=== PATIENT | male | born 1930 | race Caucasian/White ===

== ENCOUNTER 2018-02-18 16:42 | Inpatient (IN) | payer MEDICARE ==
[~2018-02-18] VITALS: Ht 167.6 cm; Wt 64.8 kg
[~2018-02-18 16:42] MED LIST: ZOCO10TA
[2018-02-18 17:28] VITALS: BP 151/92; PULSE 77; RESP 18; TEMP 97.6; O2SAT 98
[2018-02-18] MEDS ORDERED: LEVO50TA4 PO (17:49)
[2018-02-18] MEDS ORDERED: WARF-18 PO (17:49)
[2018-02-18] MEDS ORDERED: GABA300C5 PO (17:49)
[2018-02-18] MEDS ORDERED: METO100T PO (17:49)
[2018-02-18] MEDS ORDERED: MONT10TA2 PO (17:50)
[2018-02-18] MEDS ORDERED: RANI150T PO (17:50)
[2018-02-18 17:54] VITALS: RESP 18; O2SAT 95
[2018-02-18 18:05] LABS: AUTOMATED NEUTROPHIL # 5.7 TH/MM3 (1.8-7.7); BASOPHIL # 0.1 TH/MM3 (0-0.2); BASOPHIL % 0.8 % (0.0-2.0); EOSINOPHIL # 0.1 TH/MM3 (0-0.4); EOSINOPHIL % 1.8 % (0.0-4.0); HEMATOCRIT 43.2 % (39.0-51.0); HEMOGLOBIN 14.4 GM/DL (13.0-17.0); LYMPH % 10.2 % (9.0-44.0); LYMPHOCYTE # 0.8 TH/MM3 (1.0-4.8); MEAN CELL VOLUME 100.5 FL (80.0-100.0); MEAN CORPUSCULAR HEMOGLOBIN 33.5 PG (27.0-34.0); MEAN CORPUSCULAR HGB CONC 33.4 % (32.0-36.0); MONO % 11.2 % (0.0-8.0); MONOCYTE # 0.8 TH/MM3 (0-0.9); PLATELET COUNT 266 TH/MM3 (150-450); RED CELL DISTRIBUTION WIDTH 15.7 % (11.6-17.2); WHITE BLOOD COUNT 7.5 TH/MM3 (4.0-11.0)
[2018-02-18 18:31] LABS: BICARBONATE 21.6 MEQ/L (21.0-32.0); CALCIUM 8.8 MG/DL (8.5-10.1); CREATININE 2.49 MG/DL (0.60-1.30)
[2018-02-18] MEDS ORDERED: SODIUM CHLORID 0.9% 500 ML INJ 500 ML IV ONE (18:45)
--- NOTE | 2018-02-18 18:49 | RADRPT ---
EXAM DATE/TIME: 02/18/2018 18:03 [facility] COMPARISON: No previous studies available for comparison. INDICATIONS : Short of breath. MEDICAL HISTORY : None. SURGICAL HISTORY : None. ENCOUNTER: Subsequent ACUITY: 3 days PAIN SCORE: 6/10 LOCATION: Bilateral chest FINDINGS: The lungs are clear. Mild hyperinflation The heart is minimally enlarged. The pulmonary vascularity is normal. There is no evidence for infiltrate or failure. The portion of the bony skeleton visualized is unremarkable. CONCLUSION: Compensated cardiomegaly with mild hyperinflation otherwise negative . Mike Armendariz MD FACR on February 18, 2018 at 18:46 Board Certified Radiologist. This report was verified electronically.
[2018-02-18 19:02] LABS: PROTHROMBIN TIME - PATIENT 95.4 SEC (9.8-11.6)
[2018-02-18 19:11] LABS: INTERNATIONAL NORMALIZED RATIO 9.6 RATIO
[2018-02-18 19:47] LABS: ALBUMIN 3.7 GM/DL (3.4-5.0); DIRECT BILIRUBIN ADULT 0.8 MG/DL (0.0-0.2); MAGNESIUM 2.4 MG/DL (1.5-2.5)
[2018-02-18 19:57] LABS: INDIRECT BILIRUBIN 1.4 MG/DL (0.0-0.8); TOTAL BILIRUBIN ADULT 2.2 MG/DL (0.2-1.0); TOTAL PROTEIN 7.2 GM/DL (6.4-8.2); TROPONIN I 0.09 NG/ML (0.02-0.05)
[2018-02-18 20:09] VITALS: BP 140/76; PULSE 85; RESP 18; O2SAT 95
--- NOTE | 2018-02-18 20:11 | RADRPT ---
EXAM DATE/TIME: 02/18/2018 19:38 [facility] COMPARISON: No previous studies available for comparison. INDICATIONS : Mucosal RADIATION DOSE: 41.35 CTDIvol (mGy) MEDICAL HISTORY : Hypertension. Carcinoma, prostate. SURGICAL HISTORY : None. ENCOUNTER: Initial ACUITY: 1 day PAIN SCALE: 2/10 LOCATION: cranial TECHNIQUE: Multiple contiguous axial images were obtained of the head. Using automated exposure control and adj ustment of the mA and/or kV according to patient size, radiation dose was kept as low as reasonably a chievable to obtain optimal diagnostic quality images. DICOM format image data is available electro nically for review and comparison. 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 Mild atrophy. Ventricle size is appropriate. No parenchymal hem orrhage, acute infarction or mass effect. POSTERIOR FOSSA: Posterior EXTRACRANIAL: Extracranial SKULL: The calvaria is intact. No evidence of skull fracture. CONCLUSION: Left occipital region Mike Armendariz MD FACR on February 18, 2018 at 20:07 Board Certified Radiologist. This report was verified electronically.
--- NOTE | 2018-02-18 20:14 | RADRPT ---
EXAM DATE/TIME: 02/18/2018 19:43 [facility] COMPARISON: No previous studies available for comparison. INDICATIONS : Patient complains of weakness and abdominal pain. ORAL CONTRAST: No oral contrast ingested. RADIATION DOSE: 6.77 CTDIvol (mGy) MEDICAL HISTORY : Hypertension. Carcinoma, prostate. SURGICAL HISTORY : None. ENCOUNTER: Initial ACUITY: 1 day PAIN SCALE: 0/10 LOCATION: abdomen TECHNIQUE: Volumetric scanning of the abdomen and pelvis was performed. Using automated exposure control and ad justment of the mA and/or kV according to patient size, radiation dose was kept as low as reasonably achievable to obtain optimal diagnostic quality images. DICOM format image data is available electro nically for review and comparison. FINDINGS: Small right pleural effusion. Mild complete cardiomegaly. The liver and gallbladder are unremarkable Previous gastric surgery Spleen, pancreas and adrenals unremarkable Kidneys unremarkable Extensive vascular calcifications There is no ascites or adenopathy The contents are unremarkable Review of bone was revealed extensive bone sclerosis in the T10 vertebral body. Minimal sclerotic ch anges are seen in L5 and S1. CONCLUSION: Small right pleural effusion Cannot exclude bony metastatic disease in T10. Correlation suggested. No other abnormality is appreciated. Mike Armendariz MD FACR on February 18, 2018 at 20:08 Board Certified Radiologist. This report was verified electronically.
[2018-02-18 20:44] LABS: BACTERIA, URINE OCC /hpf; BILIRUBIN, URINE NEG (NEG); BLOOD, URINE NEG (NEG); GLUCOSE,URINE NEG (NEG); HYALINE CAST, URINE 10 /lpf (RARE); KETONE, URINE NEG (NEG); NITRITE,URINE NEG (NEG); SQUAMOUS EPITHELIAL CELL URINE <1 /hpf (0-5); URINE COLOR YELLOW (YELLW/STRAW); URINE LEUKOCYTE ESTERASE SMALL (NEG)
--- NOTE | 2018-02-18 21:02 | PD ---
HPI Chief Complaint: General Weakness Time Seen by Provider: 18:00 Travel History International Travel<30 days: No Contact w/Intl Traveler<30days: No Traveled to known affect area: No History of Present Illness HPI 87-year-old male that presents to the ED for evaluation of generalized weakness and shortness of breath with exertion. Patient has had this for a couple of months. Per patient it all started and Thanksgiving. Per patient since Thanksgiving he has been having issues with his throat. Per patient he spits up a lot of phlegm. He had an episode of choking during Thanksgiving and he had issues during the night but ever since has been having issues with spitting up and shortness of breath with exertion. He was seen by a counter sales person, ear nose controlled, fisheries management biologist and they will prescribe him some inhalers with minimal relief. Per patient and family he continued to have the symptoms. He does have a history of early dementia and has a history of heart disease taking Coumadin. He had a history of stroke as well has a history of CHF in the past. Per family and patient did have noted that he is progressively getting weaker and weaker. He is also not eating for the past 4 days. He has been having shortness of breath with exertion which is basic tasks that before he is to be able to do well. Patient denies any pain. No chest pain or shortness of breath at this time. No injuries. No falls or head injuries. No bleeding. PFSH Past Medical History Atrial Fibrillation: Yes Blood Disorders: No Cancer: Yes (PROSTATE) Cardiovascular Problems: No High Cholesterol: Yes Chemotherapy: No Endocrine: No Gastrointestinal Disorders: Yes Genitourinary: Yes Hypertension: Yes Immune Disorder: No Musculoskeletal: No Neurologic: No Psychiatric: No Reproductive: No Respiratory: No Radiation Therapy: No Thyroid Disease: Yes Ulcer: Yes (30 YEARS AGO) Past Surgical History AICD: No Arteriovenous Shunt: No Insulin Pump: No Joint Replacement: No Pacemaker: No Social History Alcohol Use: Yes (1-2 BEERS DAILY) Tobacco Use: No Substance Use: No Allergies-Medications (Allergen,Severity, Reaction): Coded Allergies: Sulfa (Sulfonamide Antibiotics) (Unverified Allergy, Unknown, 06/29/17) Reported Meds & Prescriptions Reported Meds & Active Scripts Active Reported Ranitidine (Ranitidine HCl) 150 Mg Tab 150 Mg PO BID Singulair (Montelukast Sodium) 10 Mg Tab 10 Mg PO HS Gabapentin 300 Mg Cap 300 Mg PO HS Warfarin 2.5 Mg Tab 2.5 Mg PO DAILY Levothyroxine (Levothyroxine Sodium) 50 Mcg Tab 50 Mcg PO DAILY Metoprolol Tartrate 100 Mg Tab 100 Mg PO DAILY Review of Systems Except as stated in HPI: all other systems reviewed are Neg Physical Exam Narrative GENERAL: SKIN: Warm and dry. HEAD: Atraumatic. Normocephalic. EYES: Pupils equal and round. No scleral icterus. No injection or drainage. ENT: No nasal bleeding or discharge. Mucous membranes pink and moist. Tongue is midline. No uvula deviation. NECK: Trachea midline. No JVD. CARDIOVASCULAR: Regular rate and rhythm. No murmurs, S3, S4. RESPIRATORY: No accessory muscle use. Clear to auscultation. Breath sounds equal bilaterally. GASTROINTESTINAL: Abdomen soft, non-tender, nondistended. Hepatic and splenic margins not palpable. MUSCULOSKELETAL: Extremities without clubbing, cyanosis, or edema. No obvious deformities. Full range of motion of the upper and lower extremities bilaterally. 2+ pulses bilaterally. NEUROLOGICAL: Awake and alert. No obvious cranial nerve deficits. Motor grossly within normal limits. Five out of 5 muscle strength in the arms and legs. Normal speech. PSYCHIATRIC: Appropriate mood and affect; insight and judgment normal. Data Data Last Documented VS Vital Signs Date Time Temp Pulse Resp B/P (MAP) Pulse Ox O2 Delivery O2 Flow Rate FiO2 02/18/18 20:11 95 Room Air 02/18/18 20:09 85 18 140/76 (97) 02/18/18 17:28 97.6 Orders Orders Complete Blood Count With Diff (02/18/18 17:52) Basic Metabolic Panel (Bmp) (02/18/18 17:52) Chest, Pa & Lat (02/18/18 17:52) Iv Access Insert/Monitor (02/18/18 17:52) Ecg Monitoring (02/18/18 17:52) Oxygen Administration (02/18/18 17:52) Oximetry (02/18/18 17:52) Electrocardiogram (02/18/18 17:52) Ckmb (Isoenzyme) Profile (02/18/18 18:05) Troponin I (02/18/18 18:05) B-Type Natriuretic Peptide (02/18/18 18:05) Prothrombin Time / Inr (Pt) (02/18/18 18:05) Act Partial Throm Time (Ptt) (02/18/18 18:05) Blood Culture (02/18/18 18:05) Lipase (02/18/18 18:05) Magnesium (Mg) (02/18/18 18:05) Thyroid Stimulating Hormone (02/18/18 18:05) Hepatic Functional Panel (02/18/18 18:05) Ct Brain W/O Iv Contrast(Rout) (02/18/18 ) Ct Abd/Pel W/O Iv Contrast (02/18/18 ) Sodium Chlorid 0.9% 500 Ml Inj (Ns 500 M (02/18/18 18:45) CKMB (02/18/18 17:56) CKMB% (02/18/18 17:56) Urinalysis - C+S If Indicated (02/18/18 20:16) Admit Order (Ed Use Only) (02/18/18 20:47) Labs Laboratory Tests Test 02/18/18 17:56 02/18/18 18:28 02/18/18 19:15 White Blood Count 7.5 TH/MM3 Red Blood Count 4.30 MIL/MM3 Hemoglobin 14.4 GM/DL Hematocrit 43.2 % Mean Corpuscular Volume 100.5 FL Mean Corpuscular Hemoglobin 33.5 PG Mean Corpuscular Hemoglobin Concent 33.4 % Red Cell Distribution Width 15.7 % Platelet Count 266 TH/MM3 Mean Platelet Volume 8.0 FL Neutrophils (%) (Auto) 76.0 % Lymphocytes (%) (Auto) 10.2 % Monocytes (%) (Auto) 11.2 % Eosinophils (%) (Auto) 1.8 % Basophils (%) (Auto) 0.8 % Neutrophils # (Auto) 5.7 TH/MM3 Lymphocytes # (Auto) 0.8 TH/MM3 Monocytes # (Auto) 0.8 TH/MM3 Eosinophils # (Auto) 0.1 TH/MM3 Basophils # (Auto) 0.1 TH/MM3 CBC Comment DIFF FINAL Differential Comment Blood Urea Nitrogen 66 MG/DL Creatinine 2.49 MG/DL Random Glucose 98 MG/DL Calcium Level 8.8 MG/DL Sodium Level 139 MEQ/L Potassium Level 4.6 MEQ/L Chloride Level 107 MEQ/L Carbon Dioxide Level 21.6 MEQ/L Anion Gap 10 MEQ/L Estimat Glomerular Filtration Rate 25 ML/MIN Magnesium Level 2.4 MG/DL Total Bilirubin 2.2 MG/DL Direct Bilirubin 0.8 MG/DL Indirect Bilirubin 1.4 MG/DL Aspartate Amino Transf (AST/SGOT) 158 U/L Alanine Aminotransferase (ALT/SGPT) 151 U/L Alkaline Phosphatase 90 U/L Total Creatine Kinase 702 U/L Creatine Kinase MB 42.7 NG/ML Creatine Kinase MB % 6.1 % Troponin I 0.09 NG/ML B-Type Natriuretic Peptide 2029 PG/ML Total Protein 7.2 GM/DL Albumin 3.7 GM/DL Lipase 572 U/L Thyroid Stimulating Hormone 3rd Gen 3.800 uIU/ML Prothrombin Time 95.4 SEC Prothromb Time International Ratio 9.6 RATIO Activated Partial Thromboplast Time 38.7 SEC Urine Color YELLOW Urine Turbidity CLEAR Urine pH 5.0 Urine Specific [place] 1.024 Urine Protein TRACE mg/dL Urine Glucose (UA) NEG mg/dL Urine Ketones NEG mg/dL Urine Occult Blood NEG Urine Nitrite NEG Urine Bilirubin NEG Urine Urobilinogen LESS THAN 2.0 MG/DL Urine Leukocyte Esterase SMALL Urine RBC 1 /hpf Urine WBC 4 /hpf Urine Squamous Epithelial Cells <1 /hpf Urine Bacteria OCC /hpf Urine Hyaline Casts 10 /lpf Microscopic Urinalysis Comment CULT NOT INDICATED MDM Medical Decision Making Medical Screen Exam Complete: Yes Emergency Medical Condition: Yes Medical Record Reviewed: Yes Interpretation(s) CBC & BMP Diagram 02/18/18 17:56 Calcium Level 8.8 Last Impressions Chest X-Ray 02/18/18 1752 Signed Impressions: Service Date/Time: Sunday, February 18, 2018 18:03 - CONCLUSION: Compensated cardiomegaly with mild hyperinflation otherwise negative . Mike Armendariz MD FACR Head CT 02/18/18 0000 Signed Impressions: Service Date/Time: Sunday, February 18, 2018 19:38 - CONCLUSION: Left occipital region Mike Armendariz MD FACR Abdomen/Pelvis CT 02/18/18 0000 Signed Impressions: Service Date/Time: Sunday, February 18, 2018 19:43 - CONCLUSION: Small right pleural effusion Cannot exclude bony metastatic disease in T10. Correlation suggested. No other abnormality is appreciated. Mike Armendariz MD FACR troponin of 0.09 Elevated CKMB EKG shows sinus rhythm with no sign of acute ischemia or arrhythmia noted by me and attending. Differential Diagnosis Chest pain versus CHF versus ACS versus weakness versus leg weakness Narrative Course 87-year-old male presents to the ED for evaluation of weakness shortness of breath with exertion. Patient was properly examined and was found to have signs and symptoms of ovarian etiology. Labs and imaging were ordered. Labs and imaging did show positive troponin, BNP elevated, appears to be acute on chronic kidney injury as well as coagulopathy and possible mass to the thoracic spine. At this time recommendations for admission for further evaluation. Patient and family agree with this. Case discussed with Dr. Wolf who agrees to admission. Patient was admitted to his service. Diagnosis Primary Impression: Shortness of breath on exertion Additional Impressions: Acute exacerbation of CHF (congestive heart failure) Qualified Codes: I50.9 - Heart failure, unspecified Acute kidney injury Troponin level elevated Admitting Information Admitting Physician Requests: Admit Peter Adhikari Feb 18, 2018 21:02
--- NOTE | 2018-02-18 21:36 | HHI.HP ---
HPI [facility] Primary Care Physician Ayleen Tolentino MD Admission Diagnosis SOB with excertion, CHF exacerbation, positive troponin, coagulopath Chief Complaint: sob Travel History International Travel<30 Days: No Contact w/Intl Traveler <30 Da: No Traveled to Known Affected Are: No History of Present Illness Pt is 87 yo with afib, hx prostate/bladder ca, ckd 3 who presents with sob and cough since 2016. says he has seen taxi servicer, ent, pulmonary, and pcp. She says asthma was considered but inhalers aren't helping. Over past 2 weeks getting more sob and very difficult to walk to mailbox. Denies orthopnea or any peripheral swelling. No abdomen swelling, No cp or palpitations. No n/v/d/f/c. They decided to come to ED for evaluation as the sob is progressive especially with exertion. LABS: 12/16/17....bun 23, cr 1.45, gfr 43, ast 24, alt 16, alk phos 69, t. bili .7 , tsh 6, hgba1c 5.7, IGE 407 LABS: 02/16/18 ...bun 52, cr 2.1, gfr 27 Review of Systems Other sob. worse with exertion Past Family Social History Past Medical History afib bladder ca prostate ca. cryoablation ckd 3 hypothyroidism gout cva pud. requiring surgery.partial gastrectomy hyperlipidemia Reported Medications Ranitidine (Ranitidine HCl) 150 Mg Tab 150 Mg PO BID Singulair (Montelukast Sodium) 10 Mg Tab 10 Mg PO HS Gabapentin 300 Mg Cap 300 Mg PO HS Warfarin 2.5 Mg Tab 2.5 Mg PO DAILY Levothyroxine (Levothyroxine Sodium) 50 Mcg Tab 50 Mcg PO DAILY Metoprolol Tartrate ER 100 Mg Tab 100 Mg PO DAILY asthmanex prn Allergies: Coded Allergies: Sulfa (Sulfonamide Antibiotics) (Unverified Allergy, Unknown, 06/29/17) Family History [place] Social History quit tobacco 86 quit etoh around 2005. prior was at least 6pk beer/daily Physical Exam Vital Signs nad lying in bed heart reg lung diminished right base abd s/nt ext no edema mild jvd Vital Signs Date Time Temp Pulse Resp B/P (MAP) Pulse Ox O2 Delivery O2 Flow Rate FiO2 02/18/18 20:11 95 Room Air 02/18/18 20:09 85 18 140/76 (97) 95 Room Air 02/18/18 20:05 Room Air 02/18/18 17:54 98 Room Air 02/18/18 17:54 18 95 Room Air 02/18/18 17:28 97.6 77 18 151/92 (111) 98 Room Air Laboratory Laboratory Tests Test 02/18/18 17:56 02/18/18 18:28 02/18/18 19:15 White Blood Count 7.5 Red Blood Count 4.30 Hemoglobin 14.4 Hematocrit 43.2 Mean Corpuscular Volume 100.5 Mean Corpuscular Hemoglobin 33.5 Mean Corpuscular Hemoglobin Concent 33.4 Red Cell Distribution Width 15.7 Platelet Count 266 Mean Platelet Volume 8.0 Neutrophils (%) (Auto) 76.0 Lymphocytes (%) (Auto) 10.2 Monocytes (%) (Auto) 11.2 Eosinophils (%) (Auto) 1.8 Basophils (%) (Auto) 0.8 Neutrophils # (Auto) 5.7 Lymphocytes # (Auto) 0.8 Monocytes # (Auto) 0.8 Eosinophils # (Auto) 0.1 Basophils # (Auto) 0.1 CBC Comment DIFF FINAL Differential Comment Blood Urea Nitrogen 66 Creatinine 2.49 Random Glucose 98 Calcium Level 8.8 Sodium Level 139 Potassium Level 4.6 Chloride Level 107 Carbon Dioxide Level 21.6 Anion Gap 10 Estimat Glomerular Filtration Rate 25 Magnesium Level 2.4 Total Bilirubin 2.2 Direct Bilirubin 0.8 Indirect Bilirubin 1.4 Aspartate Amino Transf (AST/SGOT) 158 Alanine Aminotransferase (ALT/SGPT) 151 Alkaline Phosphatase 90 Total Creatine Kinase 702 Creatine Kinase MB 42.7 Creatine Kinase MB % 6.1 Troponin I 0.09 B-Type Natriuretic Peptide 2029 Total Protein 7.2 Albumin 3.7 Lipase 572 Thyroid Stimulating Hormone 3rd Gen 3.800 Prothrombin Time 95.4 Prothromb Time International Ratio 9.6 Activated Partial Thromboplast Time 38.7 Urine Color YELLOW Urine Turbidity CLEAR Urine pH 5.0 Urine Specific [place] 1.024 Urine Protein TRACE Urine Glucose (UA) NEG Urine Ketones NEG Urine Occult Blood NEG Urine Nitrite NEG Urine Bilirubin NEG Urine Urobilinogen LESS THAN 2.0 Urine Leukocyte Esterase SMALL Urine RBC 1 Urine WBC 4 Urine Squamous Epithelial Cells <1 Urine Bacteria OCC Urine Hyaline Casts 10 Microscopic Urinalysis Comment CULT NOT INDICATED Date/Time Source Procedure Growth Status 02/18/18 18:30 Blood Peripheral Aerobic Blood Culture Pending Received 4 18:30 Blood Peripheral Anaerobic Blood Culture Pending Received Result Diagram: 02/18/[id number]/[id number] Caprinsusi VTE Risk Assessment Caprini VTE Risk Assessment: Mod/High Risk (score >= 2) Caprini Risk Assessment Model Point Value = 1 Point Value = 2 Point Value = 3 Point Value = 5 Age 41-60 Minor surgery BMI > 25 kg/m2 Swollen legs Varicose veins or History of unexplained or recurrent spontaneous Oral contraceptives or hormone replacement Sepsis (< 1 month) Serious lung disease, including pneumonia (< 1 month) Abnormal pulmonary function Acute myocardial infarction Congestive heart failure (< 1 month) History of inflammatory bowel disease Medical patient at bed rest Age 61-74 Arthroscopic surgery Major open surgery (> 45 min) Laparoscopic surgery (> 45 min) Malignancy Confined to bed (> 72 hours) Immobilizing plaster cast Central venous access Age >= 75 History of VTE Family history of VTE Factor V Leiden Prothrombin [id number] Lupus anticoagulant Anticardiolipin antibodies Elevated serum homocysteine Heparin-induced thrombocytopenia Other congenital or acquired thrombophilia Stroke (< 1 month) Elective arthroplasty Hip, pelvis, or leg fracture Acute spinal cord injury (< 1 month) Prophylaxis Regimen Total Risk Factor Score Risk Level Prophylaxis Regimen 0-1 Low Early ambulation 2 Moderate Order ONE of the following: *Sequential Compression Device (SCD) *Heparin 5000 units SQ BID 3-4 Higher Order ONE of the following medications: *Heparin 5000 units SQ TID *Enoxaparin/Lovenox 40 mg SQ daily (WT < 150 kg, CrCl > 30 mL/min) *Enoxaparin/Lovenox 30 mg SQ daily (WT < 150 kg, CrCl > 10-29 mL/min) *Enoxaparin/Lovenox 30 mg SQ BID (WT < 150 kg, CrCl > 30 mL/min) AND/OR *Sequential Compression Device (SCD) 5 or more Highest Order ONE of the following medications: *Heparin 5000 units SQ TID (Preferred with Epidurals) *Enoxaparin/Lovenox 40 mg SQ daily (WT < 150 kg, CrCl > 30 mL/min) *Enoxaparin/Lovenox 30 mg SQ daily (WT < 150 kg, CrCl > 10-29 mL/min) *Enoxaparin/Lovenox 30 mg SQ BID (WT < 150 kg, CrCl > 30 mL/min) AND *Sequential Compression Device (SCD) Assessment and Plan Problem List: (1) Shortness of breath on exertion ICD Codes: R06.02 - Shortness of breath Status: Acute Plan: Presents with SOB with exertion LABS: 12/16/17....bun 23, cr 1.45, gfr 43, ast 24, alt 16, alk phos 69, t. bili .7 , tsh 6, hgba1c 5.7, IGE 407 LABS: 02/16/18 ...bun 52, cr 2.1, gfr 27 1. a/ckd 3 2. possible acute chf 3. elevated lft. consider hepatic congestion 4. right pleural effusion 5. 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 chronic afib. controlled 8. hx prostate/bladder ca 9. cardiac enzyme elevation. could be related to chf/yolanda order [address] chest consult his account solutions analyst before deciding on diuretic therapy. ..given 500ml bolus in ED hold coumadin. vit k dose. recheck in AM (2) Acute renal failure superimposed on stage 3 chronic kidney disease ICD Codes: N17.9 - Acute kidney failure, unspecified; N18.3 - Chronic kidney disease, stage 3 (moderate) Status: Acute (3) Pleural effusion ICD Codes: J90 - Pleural effusion, not elsewhere classified Status: Acute (4) Cardiac enzymes elevated ICD Codes: R74.8 - Abnormal levels of other serum enzymes Status: Acute (5) LFT elevation ICD Codes: R79.89 - Other specified abnormal findings of blood chemistry Status: Acute (6) Coumadin toxicity ICD Codes: T45.511A - Poisoning by anticoagulants, accidental (unintentional), initial encounter Status: Acute (7) Hypothyroid ICD Codes: E03.9 - Hypothyroidism, unspecified Status: Chronic (8) Afib ICD Codes: I48.91 - Unspecified atrial fibrillation Status: Chronic (9) CVA (cerebral vascular accident) ICD Codes: I63.9 - Cerebral infarction, unspecified Status: Chronic Physician Certification 2 Midnight Certification Type: Admission for Inpatient Services Order for Inpatient Services 3The services are ordered in accordance with Medicare regulations or non- Medicare payer requirements, as applicable. In the case of services not specified as inpatient-only, they are appropriately provided as inpatient services in accordance with the 2-midnight benchmark. Estimated LOS (days): 3 3 days is the estimated time the patient will need to remain in the hospital, assuming treatment plan goals are met and no additional complications. Post-Hospital Plan: Home Adan Harris MD Feb 18, 2018 21:36
[2018-02-18] MEDS ORDERED: PHYTONADIONE 5 MG/SWFI 5 ML ORAL SYR PO ONE (22:00)
[2018-02-18 22:22] VITALS: O2SAT 95
[2018-02-18 22:23] VITALS: BP 140/77; PULSE 76; RESP 18; TEMP 97.6; O2SAT 97
--- NOTE | 2018-02-18 23:11 | RADRPT ---
EXAM DATE/TIME: 02/18/2018 22:15 [facility] COMPARISON: CT ABDOMEN & PELVIS W/O CONTRAST, February 18, 2018, 19:43. INDICATIONS : Shortness of breath. RADIATION DOSE: 8.64 CTDIvol (mGy) MEDICAL HISTORY : Hypertension. Carcinoma, prostate. SURGICAL HISTORY : None. ENCOUNTER: Initial ACUITY: 1 day PAIN SCALE: 0/10 LOCATION: chest TECHNIQUE: Volumetric scanning of the chest was performed. Using automated exposure control and adjustment of t he mA and/or kV according to patient size, radiation dose was kept as low as reasonably achievable to obtain optimal diagnostic quality images. DICOM format image data is available electronically for r eview and comparison. Follow-up recommendations for detected pulmonary nodules are based at a minimum on nodule size and pa tient risk factors according to Fleischner Society Guidelines. FINDINGS: LUNGS: Patchy atelectasis at the inferior aspect of the left lower lobe. Small bilateral pleural effusions r ight greater than left. Minimal dependent groundglass opacity bilaterally. MEDIASTINUM: Diffuse arterial calcification. Coronary artery calcification. Diffusely enlarged heart. Aortic diame ter are within normal limits. No enlarged lymph nodes. AXILLAE: Within normal limits. No lymphadenopathy. MUSCULOSKELETAL: Degenerative findings thoracic spine. MISCELLANEOUS: Small amount of free fluid in the right upper quadrant of the abdomen. Postsurgical findings in the s tomach. CONCLUSION: 1. Atelectasis at left lung base and minimal groundglass opacity bilaterally suggesting atelectasis v ersus minimal pulmonary edema. 2. Moderate diffuse cardiomegaly. 3. Coronary artery calcification. 4. Small right greater than left pleural effusions. Luciano Alford MD on February 18, 2018 at 22:55 Board Certified Radiologist. This report was verified electronically.
[2018-02-18 23:51] VITALS: PULSE 103
[2018-02-19] VITALS (8 sets, daily range): BP systolic 120–144; BP diastolic 61–92; PULSE 62–102; RESP 18–20; TEMP 97.8–98; O2SAT 94–99
[2018-02-19] MEDS: LEVOTHYROXINE SODIUM 50 MCG TAB PO SCH (05:38)
[2018-02-19 07:25] LABS: PROTHROMBIN TIME - PATIENT 91.4 SEC (9.8-11.6)
[2018-02-19 07:26] LABS: AUTOMATED NEUTROPHIL # 4.9 TH/MM3 (1.8-7.7); BASOPHIL # 0.1 TH/MM3 (0-0.2); BASOPHIL % 1.1 % (0.0-2.0); EOSINOPHIL # 0.1 TH/MM3 (0-0.4); EOSINOPHIL % 1.8 % (0.0-4.0); HEMOGLOBIN 13.7 GM/DL (13.0-17.0); LYMPH % 9.3 % (9.0-44.0); LYMPHOCYTE # 0.6 TH/MM3 (1.0-4.8); MEAN CELL VOLUME 100.3 FL (80.0-100.0); MEAN CORPUSCULAR HEMOGLOBIN 33.5 PG (27.0-34.0); MEAN CORPUSCULAR HGB CONC 33.4 % (32.0-36.0); MONO % 12.4 % (0.0-8.0); MONOCYTE # 0.8 TH/MM3 (0-0.9); NEUT % 75.4 % (16.0-70.0); PLATELET COUNT 220 TH/MM3 (150-450); RED BLOOD COUNT 4.09 MIL/MM3 (4.50-5.90); WHITE BLOOD COUNT 6.5 TH/MM3 (4.0-11.0)
[2018-02-19 07:34] LABS: INTERNATIONAL NORMALIZED RATIO 9.2 RATIO
[2018-02-19 07:55] LABS: ALBUMIN 3.1 GM/DL (3.4-5.0); BICARBONATE 17.3 MEQ/L (21.0-32.0); CALCIUM 8.6 MG/DL (8.5-10.1); CREATININE 2.03 MG/DL (0.60-1.30); DIRECT BILIRUBIN ADULT 0.7 MG/DL (0.0-0.2); INDIRECT BILIRUBIN 1.4 MG/DL (0.0-0.8); TOTAL BILIRUBIN ADULT 2.1 MG/DL (0.2-1.0); TOTAL PROTEIN 6.3 GM/DL (6.4-8.2); TROPONIN I 0.07 NG/ML (0.02-0.05)
[2018-02-19] MEDS ORDERED: PHYTONADIONE 5 MG/SWFI 5 ML ORAL SYR PO ONE (09:00)
[2018-02-19] MEDS ORDERED: PHYTONADIONE 5 MG TAB PO ONE (09:00)
[2018-02-19] MEDS: METOPROLOL TARTRATE 100 MG TAB PO SCH (10:16)
[2018-02-19] MEDS: FAMOTIDINE 20 MG TAB PO SCH ×2 (10:17→21:11)
--- NOTE | 2018-02-19 10:29 | HHI.PR ---
Subjective Remarks looks comfortable lying in bed Objective Vitals heart irreg lung good air entry abd s/nt ext no edema Vital Signs Date Time Temp Pulse Resp B/P (MAP) Pulse Ox O2 Delivery O2 Flow Rate FiO2 02/19/18 08:00 98.0 87 20 133/81 (98) 96 02/19/18 04:00 97.8 92 18 129/77 (94) 98 02/19/18 03:47 100 02/19/18 00:00 97.8 94 18 144/75 (98) 98 02/18/18 23:51 103 02/18/18 22:23 97.6 76 18 140/77 (98) 97 02/18/18 22:22 95 02/18/18 20:11 95 Room Air 02/18/18 20:09 85 18 140/76 (97) 95 Room Air 02/18/18 20:05 Room Air 02/18/18 17:54 98 Room Air 02/18/18 17:54 18 95 Room Air 02/18/18 17:28 97.6 77 18 151/92 (111) 98 Room Air Result Diagram: 02/19/18 0630 02/19/18 0630 A/P Problem List: (1) Shortness of breath on exertion ICD Codes: R06.02 - Shortness of breath Status: Acute Plan: Presents with SOB with exertion LABS: 12/16/17....bun 23, cr 1.45, gfr 43, ast 24, alt 16, alk phos 69, t. bili .7 , tsh 6, hgba1c 5.7, IGE 407 LABS: 02/16/18 ...bun 52, cr 2.1, gfr 27 1. a/ckd 3. cardiorenal. 2. acute chf. systolic 3. elevated lft. consider hepatic congestion 4. right pleural effusion 5. 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 chronic afib. controlled 8. hx prostate/bladder ca 9. cardiac enzyme elevation. could be related to chf/yolanda order 2 d echo. 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 ..given 500ml bolus in ED and his bun/cr are slightly improved. will await echo and renal consult. hold coumadin. vit k dosing . addendum: this pt is very clear. I asked about resuscitation and life support measures if needed. He would want dnr and only comfort measures . He says his family is aware of these wishes. I will place dnr on chart. (2) Acute renal failure superimposed on stage 3 chronic kidney disease ICD Codes: N17.9 - Acute kidney failure, unspecified; N18.3 - Chronic kidney disease, stage 3 (moderate) Status: Acute (3) Pleural effusion ICD Codes: J90 - Pleural effusion, not elsewhere classified Status: Acute (4) Cardiac enzymes elevated ICD Codes: R74.8 - Abnormal levels of other serum enzymes Status: Acute (5) LFT elevation ICD Codes: R79.89 - Other specified abnormal findings of blood chemistry Status: Acute (6) Coumadin toxicity ICD Codes: T45.511A - Poisoning by anticoagulants, accidental (unintentional), initial encounter Status: Acute (7) Hypothyroid ICD Codes: E03.9 - Hypothyroidism, unspecified Status: Chronic (8) Afib ICD Codes: I48.91 - Unspecified atrial fibrillation Status: Chronic (9) CVA (cerebral vascular accident) ICD Codes: I63.9 - Cerebral infarction, unspecified Status: Chronic Adan Harris MD Feb 19, 2018 10:29
--- NOTE | 2018-02-19 17:11 | EKG ---
Date Performed: 02/18/2018 Time Performed: 17:24:46 PTAGE: 87 years EKG: ATRIAL FIBRILLATION BORDERLINE LEFT AXIS DEVIATION POSSIBLE INFERIOR WALL MYOCARDIAL INFARC TION OF UNDETERMINED AGE POOR R WAVE PROGRESSION, WHICH MAY BE NORMAL VARIANT NONSPECIFIC ST-T CHANGE Compared to previous tracing, axis is slightly more leftward, otherwise no signficant change ABNORMA L ECG PREVIOUS TRACING : 06/28/2006 06.41 DOCTOR: Adan Alexis Interpretating Date/Time 02/19/2018 17:11:09
--- NOTE | 2018-02-19 18:17 | ECHRPT ---
Indication: HEART FAILURE CONCLUSIONS The left ventricular systolic function is severely reduced with an estimated ejection fraction in th e range of 20-25%. There is global left ventricular dysfunction. There is a flattened septum in systole and diastole consistent with right ventricle pressure and vol ume overload. The right ventricular systolic function is moderately decreased. Moderate mitral valve regurgitation. Pohp-pd-oeoppbll aortic valve regurgitation. There is moderate tricuspid regurgitation. Mild pulmonary valve regurgitation. BP: 129 / 77 HR: 94 Rhythm: Sinus MEASUREMENTS (Male / Female) Normal Values Technical Quality:Good 2D ECHO LV Diastolic Diameter PLAX 6.0 cm 4.2 - 5.9 / 3.9 - 5.3 cm LV Systolic Diameter PLAX 5.4 cm IVS Diastolic Thickness 1.1 cm 0.6 - 1.0 / 0.6 - 0.9 cm LVPW Diastolic Thickness 1.1 cm 0.6 - 1.0 / 0.6 - 0.9 cm LV Relative Wall Thickness 0.4 RV Internal Dim ED PLAX 2.5 cm LVOT Diameter 1.8 cm LA Systolic Diameter LX 4.2 cm 3.0 - 4.0 / 2.7 - 3.8 cm LV Ejection Fraction MOD 4C 23.5 % LV Cardiac Index MOD 4C 1295.9 cm/minm LV Ejection Fraction 4C AL 23.6 % LV Cardiac Index 4C AL 1303.8 cm/minm M-MODE Aortic Root Diameter MM 2.7 cm LA Systolic Diameter MM 3.1 cm LA Ao Ratio MM 1.1 AV Cusp Separation MM 1.5 cm DOPPLER AV Peak Velocity 83.3 cm/s AV Peak Gradient 2.8 mmHg AI Peak Velocity 366.0 cm/s AI Peak Gradient 53.6 mmHg AI Pressure Half Time 454.5 ms LVOT Peak Velocity 38.5 cm/s LVOT Peak Gradient 0.6 mmHg AV Area Cont Eq pk 1.2 cm MV Peak Velocity 95.9 cm/s MV Peak Gradient 3.7 mmHg MV Mean Velocity 66.8 cm/s MV Mean Gradient 2.0 mmHg MV Area PHT 4.4 cm TR Peak Velocity 259.0 cm/s TR Peak Gradient 26.8 mmHg Right Atrial Pressure 10.0 mmHg Pulmonary Artery Systolic Pressu 36.8 mmHg Right Ventricular Systolic Press 36.8 mmHg PV Peak Velocity 57.0 cm/s PV Peak Gradient 1.3 mmHg FINDINGS LEFT VENTRICLE The left ventricular systolic function is severely reduced with an estimated ejection fraction in th e range of 20-25%. Moderately dilated left ventricle. There is global left ventricular dysfunction. There is a flattened septum in systole and diastole consistent with right ventricle pressure and vol ume overload. RIGHT VENTRICLE The right ventricular systoilc function is moderately decreased. The right ventricle is moderately dilated. LEFT ATRIUM The left atrial size is moderately dilated. RIGHT ATRIUM The right atrial size is xwjjikuh-iy-ydkpmoft dilated. ATRIAL SEPTUM Normal atrial septal thickness without atrial level shunting by limited color doppler interrogation. AORTA The aortic root and proximal ascending aorta are normal in size on limited imaging. MITRAL VALVE Mild thickening of the mitral valve leaflets. Moderate mitral valve regurgitation. The mitral valve regurgitation jet is directed anteriorly. No mitral valve stenosis. AORTIC VALVE Trileaflet aortic valve. Aortic valve sclerosis is present. Daua-bi-qunpislm aortic valve regurgitation. No aortic valve stenosis. TRICUSPID VALVE Structurally normal tricuspid valve. There is moderate tricuspid regurgitation. The estimated pulmonary arterial pressure is 36.8 mmHg. PULMONARY VALVE Mild pulmonary valve regurgitation. The pulmonary valve is not well visualized. VESSELS The inferior vena cava is normal in size. PERICARDIUM No pericardial effusion. Contreras Benson DO (Electronically Signed) Final Date:19 February 2018 18:16
--- NOTE | 2018-02-19 18:18 | PD.CONS ---
HPI Service Nephrology Consult Requested By Dr. Guerrero Reason for Consult Acute and chronic kidney disease Primary Care Physician Ayleen Tolentino MD History of Present Illness Patient is a 87-year-old white male with history of chronic kidney disease stage III creatinine around 1.5, came in with weakness and shortness of breath on exertion he has atrial fibrillation, he had the been urinating well his creatinine has declined to 2.0 Review of Systems Constitutional: COMPLAINS OF: Fatigue Respiratory: COMPLAINS OF: Shortness of breath Cardiovascular: COMPLAINS OF: Dyspnea on Exertion, Lower Extremity Edema Past Family Social History Allergies: Coded Allergies: Sulfa (Sulfonamide Antibiotics) (Unverified Allergy, Unknown, 06/29/17) Past Medical History Chronic kidney disease stage III Hypertension Bladder CA Prostate CA CVA A. fib Past Surgical History Prostate Reported Medications Reported Meds & Active Scripts Active Reported Ranitidine (Ranitidine HCl) 150 Mg Tab 150 Mg PO BID Singulair (Montelukast Sodium) 10 Mg Tab 10 Mg PO HS Gabapentin 300 Mg Cap 300 Mg PO HS Warfarin 2.5 Mg Tab 2.5 Mg PO DAILY Levothyroxine (Levothyroxine Sodium) 50 Mcg Tab 50 Mcg PO DAILY Metoprolol Tartrate 100 Mg Tab 100 Mg PO DAILY Active Ordered Medications Current Medications Medications (Trade) Dose Ordered Sig/Dhiraj Route Start Time Stop Time Status Last Admin (Neurontin) 300 mg HS PO 02/19/18 21:00 (Synthroid) 50 mcg DAILY@0600 PO 02/19/18 06:00 02/19/18 05:38 (Lopressor) 100 mg DAILY PO 02/19/18 09:00 02/19/18 10:16 (Singulair) 10 mg HS PO 02/19/18 21:00 (Pepcid) 10 mg BID PO 02/19/18 09:00 02/19/18 10:17 Family History Noncontributory Social History To not smoke or drink alcohol Physical Exam Vital Signs Vital Signs Date Time Temp Pulse Resp B/P (MAP) Pulse Ox O2 Delivery O2 Flow Rate FiO2 02/19/18 16:00 97.9 95 20 122/92 (102) 97 02/19/18 12:00 98.0 62 20 139/85 (103) 99 02/19/18 10:25 94 21 02/19/18 08:00 98.0 87 20 133/81 (98) 96 02/19/18 04:00 97.8 92 18 129/77 (94) 98 02/19/18 03:47 100 02/19/18 00:00 97.8 94 18 144/75 (98) 98 02/18/18 23:51 103 02/18/18 22:23 97.6 76 18 140/77 (98) 97 02/18/18 22:22 95 02/18/18 20:11 95 Room Air 02/18/18 20:09 85 18 140/76 (97) 95 Room Air 02/18/18 20:05 Room Air Physical Exam GENERAL: Well-nourished, well-developed patient. SKIN: Warm and dry. HEAD: Normocephalic. EYES: No scleral icterus. No injection or drainage. NECK: Supple, trachea midline. No JVD or lymphadenopathy. CARDIOVASCULAR: Irregularly irregular RESPIRATORY: Breath sounds equal bilaterally. No accessory muscle use. GASTROINTESTINAL: Abdomen soft, non-tender, nondistended. EXTREMITIES: No cyanosis, or edema. NEUROLOGICAL: Awake, alert, and oriented x 3. Non-focal. Laboratory Laboratory Tests Test 02/18/18 18:28 02/18/18 19:15 02/19/18 06:30 Prothrombin Time 95.4 91.4 Prothromb Time International Ratio 9.6 9.2 Activated Partial Thromboplast Time 38.7 Urine Color YELLOW Urine Turbidity CLEAR Urine pH 5.0 Urine Specific [place] 1.024 Urine Protein TRACE Urine Glucose (UA) NEG Urine Ketones NEG Urine Occult Blood NEG Urine Nitrite NEG Urine Bilirubin NEG Urine Urobilinogen LESS THAN 2.0 Urine Leukocyte Esterase SMALL Urine RBC 1 Urine WBC 4 Urine Squamous Epithelial Cells <1 Urine Bacteria OCC Urine Hyaline Casts 10 Microscopic Urinalysis Comment CULT NOT INDICATED White Blood Count 6.5 Red Blood Count 4.09 Hemoglobin 13.7 Hematocrit 41.0 Mean Corpuscular Volume 100.3 Mean Corpuscular Hemoglobin 33.5 Mean Corpuscular Hemoglobin Concent 33.4 Red Cell Distribution Width 16.0 Platelet Count 220 Mean Platelet Volume 8.0 Neutrophils (%) (Auto) 75.4 Lymphocytes (%) (Auto) 9.3 Monocytes (%) (Auto) 12.4 Eosinophils (%) (Auto) 1.8 Basophils (%) (Auto) 1.1 Neutrophils # (Auto) 4.9 Lymphocytes # (Auto) 0.6 Monocytes # (Auto) 0.8 Eosinophils # (Auto) 0.1 Basophils # (Auto) 0.1 CBC Comment DIFF FINAL Differential Comment Blood Urea Nitrogen 59 Creatinine 2.03 Random Glucose 74 Total Protein 6.3 Albumin 3.1 Calcium Level 8.6 Alkaline Phosphatase 76 Aspartate Amino Transf (AST/SGOT) 158 Alanine Aminotransferase (ALT/SGPT) 150 Total Bilirubin 2.1 Direct Bilirubin 0.7 Sodium Level 139 Potassium Level 4.6 Chloride Level 110 Carbon Dioxide Level 17.3 Anion Gap 12 Estimat Glomerular Filtration Rate 31 Indirect Bilirubin 1.4 Total Creatine Kinase 589 Creatine Kinase MB 35.3 Creatine Kinase MB % 6.0 Troponin I 0.07 Date/Time Source Procedure Growth Status 02/18/18 18:30 Blood Peripheral Aerobic Blood Culture - Preliminary NO GROWTH IN 1 DAY Resulted 02/18/18 18:30 Blood Peripheral Anaerobic Blood Culture - Preliminary NO GROWTH IN 1 DAY Resulted Result Diagram: 02/19/18 0630 02/19/18 0630 Imaging Last Impressions Chest X-Ray 02/18/18 1752 Signed Impressions: Service Date/Time: Sunday, February 18, 2018 18:03 - CONCLUSION: Compensated cardiomegaly with mild hyperinflation otherwise negative . Mike Armendariz MD FACR Head CT 02/18/18 0000 Signed Impressions: Service Date/Time: Sunday, February 18, 2018 19:38 - CONCLUSION: Left occipital region Mike Armendariz MD FACR Chest CT 02/18/18 0000 Signed Impressions: Service Date/Time: Sunday, February 18, 2018 22:15 - CONCLUSION: 1. Atelectasis at left lung base and minimal groundglass opacity bilaterally suggesting atelectasis versus minimal pulmonary edema. 2. Moderate diffuse cardiomegaly. 3. Coronary artery calcification. 4. Small right greater than left pleural effusions. Luciano Alford MD Abdomen/Pelvis CT 02/18/18 0000 Signed Impressions: Service Date/Time: Sunday, February 18, 2018 19:43 - CONCLUSION: Small right pleural effusion Cannot exclude bony metastatic disease in T10. Correlation suggested. No other abnormality is appreciated. Mike Armendariz MD FACR Assessment and Plan Problem List: (1) Acute renal failure superimposed on stage 3 chronic kidney disease ICD Codes: N17.9 - Acute kidney failure, unspecified; N18.3 - Chronic kidney disease, stage 3 (moderate) Status: Acute Plan: This is likely due to cardiorenal syndrome and congestive heart failure Creatinine did decline Is improving Add Lasix milligrams by mouth daily Continue to monitor Patient is followed in the clinic (2) LFT elevation ICD Codes: R79.89 - Other specified abnormal findings of blood chemistry Status: Acute Plan: Likely due to passive congestion (3) Coumadin toxicity ICD Codes: T45.511A - Poisoning by anticoagulants, accidental (unintentional), initial encounter Status: Acute Plan: Patient received vitamin K (4) Acute exacerbation of CHF (congestive heart failure) ICD Codes: I50.9 - Heart failure, unspecified Status: Acute Plan: Lasix oral ordered (5) Afib ICD Codes: I48.91 - Unspecified atrial fibrillation Status: Chronic Plan: On metoprolol Problem Qualifiers (1) Acute exacerbation of CHF (congestive heart failure): Qualified Codes: I50.9 - Heart failure, unspecified Kristen Anna MD Feb 19, 2018 18:18
[2018-02-19] MEDS ORDERED: FUROSEMIDE 20 MG TAB PO ONE (18:45)
[2018-02-19] MEDS ORDERED: FUROSEMIDE 20 MG/2 ML VIAL IV PUSH ONE (19:15)
[2018-02-19] MEDS ORDERED: MONTELUKAST SODIUM 10 MG TAB PO SCH (21:00)
[2018-02-19] MEDS: GABAPENTIN 300 MG CAP PO SCH (21:11)
[2018-02-20] VITALS (9 sets, daily range): BP systolic 115–143; BP diastolic 60–76; PULSE 65–95; RESP 12–18; TEMP 96.1–98.2; O2SAT 90–100
[2018-02-20] MEDS: LEVOTHYROXINE SODIUM 50 MCG TAB PO SCH (04:58)
[2018-02-20 08:02] LABS: INTERNATIONAL NORMALIZED RATIO 2.7 RATIO; PROTHROMBIN TIME - PATIENT 27.7 SEC (9.8-11.6)
[2018-02-20 08:47] LABS: ALBUMIN 3.1 GM/DL (3.4-5.0); BICARBONATE 21.1 MEQ/L (21.0-32.0); CALCIUM 8.8 MG/DL (8.5-10.1); CREATININE 1.95 MG/DL (0.60-1.30); DIRECT BILIRUBIN ADULT 0.7 MG/DL (0.0-0.2)
[2018-02-20 08:52] LABS: INDIRECT BILIRUBIN 1.6 MG/DL (0.0-0.8); TOTAL BILIRUBIN ADULT 2.3 MG/DL (0.2-1.0); TOTAL PROTEIN 6.1 GM/DL (6.4-8.2)
[2018-02-20] MEDS ORDERED: FUROSEMIDE 20 MG TAB PO SCH (09:00)
[2018-02-20] MEDS: FAMOTIDINE 20 MG TAB PO SCH ×2 (09:19→20:13)
[2018-02-20] MEDS: METOPROLOL TARTRATE 100 MG TAB PO SCH (09:19)
[2018-02-20] MEDS ORDERED: FUROSEMIDE 20 MG/2 ML VIAL IV PUSH ONE (09:30)
--- NOTE | 2018-02-20 09:51 | HHI.PR ---
Subjective Remarks seems a little slow verbally to respond. bg noted to be 62.informed nurse. Objective Vitals lying in bed. oriented and following commands but a little more sluggish mentally jvd heart reg lung good air entry abd s/nt ext no edema Vital Signs Date Time Temp Pulse Resp B/P (MAP) Pulse Ox O2 Delivery O2 Flow Rate FiO2 02/20/18 08:00 97.2 65 12 135/70 (91) 100 02/20/18 04:00 98.2 76 18 138/74 (95) 93 02/20/18 04:00 72 02/20/18 04:00 Room Air 02/20/18 00:00 77 02/20/18 00:00 Room Air 02/20/18 00:00 98.1 75 18 143/76 (98) 94 02/19/18 21:25 21 02/19/18 20:00 Room Air 02/19/18 20:00 83 02/19/18 20:00 97.8 102 18 120/61 (80) 95 02/19/18 16:00 97.9 95 20 122/92 (102) 97 02/19/18 12:00 90 02/19/18 12:00 98.0 62 20 139/85 (103) 99 02/19/18 10:25 94 21 Result Diagram: 02/19/18 0630 02/20/18 0653 A/P Problem List: (1) Shortness of breath on exertion ICD Codes: R06.02 - Shortness of breath Status: Acute Plan: Presents with SOB with exertion LABS: 12/16/17....bun 23, cr 1.45, gfr 43, ast 24, alt 16, alk phos 69, t. bili .7 , tsh 6, hgba1c 5.7, IGE 407 LABS: 02/16/18 ...bun 52, cr 2.1, gfr 27 1. a/ckd 3. cardiorenal syndrome. 2. acute chf. systolic -2d Echo 02/19 LVF severely reduced with an EF in the range of 20-25%. There is global left ventricular dysfunction. There is a flattened septum in systole and diastole consistent with right ventricle pressure and volume overload. The right ventricular systolic function is moderately decreased. Moderate MVR,Ypqd-je-stnsjxkx AVR, Mod TVR 3. elevated lft. related to chf and hepatic congestion 4. right pleural effusion related to chf. 5. 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 chronic afib. controlled 8. hx prostate/bladder ca 9. cardiac enzyme elevation. could be related to chf/yolanda telemetry gentle iv lasix and monitor bmp closely consulted his change control specialist monitor his inr. coumadin on hold PT Overall poor prognosis. this pt is very clear. I asked about resuscitation and life support measures if needed. He would want dnr and only comfort measures . He says his family is aware of these wishes. I will place dnr on chart. (2) Acute renal failure superimposed on stage 3 chronic kidney disease ICD Codes: N17.9 - Acute kidney failure, unspecified; N18.3 - Chronic kidney disease, stage 3 (moderate) Status: Acute (3) Pleural effusion ICD Codes: J90 - Pleural effusion, not elsewhere classified Status: Acute (4) Cardiac enzymes elevated ICD Codes: R74.8 - Abnormal levels of other serum enzymes Status: Acute (5) LFT elevation ICD Codes: R79.89 - Other specified abnormal findings of blood chemistry Status: Acute (6) Coumadin toxicity ICD Codes: T45.511A - Poisoning by anticoagulants, accidental (unintentional), initial encounter Status: Acute (7) Hypothyroid ICD Codes: E03.9 - Hypothyroidism, unspecified Status: Chronic (8) Afib ICD Codes: I48.91 - Unspecified atrial fibrillation Status: Chronic (9) CVA (cerebral vascular accident) ICD Codes: I63.9 - Cerebral infarction, unspecified Status: Chronic Adan Harris MD Feb 20, 2018 09:51
--- NOTE | 2018-02-20 14:22 | HHI.NPPN ---
Subjective History of Present Illness 87-year-old male with history of chronic kidney disease and CHF Review of Systems General Constitutional: Fatigue Objective Data Data Vital Signs Date Time Temp Pulse Resp B/P (MAP) Pulse Ox O2 Delivery O2 Flow Rate FiO2 02/20/18 12:00 97.2 76 16 123/60 (81) 97 02/20/18 08:00 97.2 65 12 135/70 (91) 100 02/20/18 04:00 98.2 76 18 138/74 (95) 93 02/20/18 04:00 72 02/20/18 04:00 Room Air 02/20/18 00:00 77 02/20/18 00:00 Room Air 02/20/18 00:00 98.1 75 18 143/76 (98) 94 02/19/18 21:25 21 02/19/18 20:00 Room Air 02/19/18 20:00 83 02/19/18 20:00 97.8 102 18 120/61 (80) 95 02/19/18 16:00 97.9 95 20 122/92 (102) 97 -: 02/19/18 0630 02/20/18 0653 Physical Exam General Appearance: Well Developed, Well Nourished Neck Neck Exam: Neck Supple Pulmonary Resp Exam: Clear Bilaterally, Breath Sounds Equal Cardiology CV Exam: Arrhythmia Gastrointestinal/Abdomen GI Exam: Soft, Bowel Sounds Present Extremeties Extremities Exam: No Edema Neurologic Neuro Exam: Alert Assessment/Plan Problem List: (1) Acute renal failure superimposed on stage 3 chronic kidney disease ICD Codes: N17.9 - Acute kidney failure, unspecified; N18.3 - Chronic kidney disease, stage 3 (moderate) Status: Acute Plan: This is likely due to cardiorenal syndrome and congestive heart failure Creatinine did decline Patient on Lasix 20 mg IV every 12 Follow BMP Overall better (2) LFT elevation ICD Codes: R79.89 - Other specified abnormal findings of blood chemistry Status: Acute Plan: Likely due to passive congestion (3) Coumadin toxicity ICD Codes: T45.511A - Poisoning by anticoagulants, accidental (unintentional), initial encounter Status: Acute Plan: Patient received vitamin K (4) Acute exacerbation of CHF (congestive heart failure) ICD Codes: I50.9 - Heart failure, unspecified Status: Acute Plan: Lasix oral ordered (5) Afib ICD Codes: I48.91 - Unspecified atrial fibrillation Status: Chronic Plan: On metoprolol Problem Qualifiers (1) Acute exacerbation of CHF (congestive heart failure): Qualified Codes: I50.9 - Heart failure, unspecified Kristen Anna MD Feb 20, 2018 14:22
[2018-02-20] MEDS: FUROSEMIDE 20 MG/2 ML VIAL IV PUSH SCH (18:35)
[2018-02-20] MEDS: GABAPENTIN 300 MG CAP PO SCH (20:13)
[2018-02-21] VITALS (11 sets, daily range): BP systolic 108–130; BP diastolic 57–75; PULSE 67–92; RESP 16–20; TEMP 97.1–98.2; O2SAT 90–98
[2018-02-21] MEDS: LEVOTHYROXINE SODIUM 50 MCG TAB PO SCH (05:15)
[2018-02-21 05:38] LABS: INTERNATIONAL NORMALIZED RATIO 2.2 RATIO
[2018-02-21 05:57] LABS: TOTAL PROTEIN 6.7 GM/DL (6.4-8.2)
[2018-02-21 06:23] LABS: ALBUMIN 3.2 GM/DL (3.4-5.0); BICARBONATE 19.7 MEQ/L (21.0-32.0); CALCIUM 8.9 MG/DL (8.5-10.1); CREATININE 2.08 MG/DL (0.60-1.30); DIRECT BILIRUBIN ADULT 0.5 MG/DL (0.0-0.2); INDIRECT BILIRUBIN 1.5 MG/DL (0.0-0.8)
[2018-02-21] MEDS: FAMOTIDINE 20 MG TAB PO SCH ×2 (09:43→19:56)
[2018-02-21] MEDS: METOPROLOL TARTRATE 100 MG TAB PO SCH (09:43)
[2018-02-21] MEDS: FUROSEMIDE 20 MG/2 ML VIAL IV PUSH SCH (09:43)
--- NOTE | 2018-02-21 15:22 | HHI.PR ---
Subjective Remarks Pt feels a bit depressed today about being in the hospital and about his current medical issues which are keeping him here Pt reports that he has been urinating well Objective Vitals Vital Signs Date Time Temp Pulse Resp B/P (MAP) Pulse Ox O2 Delivery O2 Flow Rate FiO2 02/21/18 12:12 97.3 89 18 130/70 (90) 98 02/21/18 11:27 21 02/21/18 10:38 90 Room Air 02/21/18 08:05 97.1 68 18 112/71 (85) 90 02/21/18 08:00 67 02/21/18 04:02 Room Air 02/21/18 04:02 79 02/21/18 04:00 98.2 79 18 113/57 (75) 93 02/21/18 00:00 Room Air 02/21/18 00:00 97.1 70 16 122/65 (84) 90 02/21/18 00:00 80 02/20/18 20:34 21 02/20/18 20:00 79 02/20/18 20:00 96.1 72 16 115/62 (79) 90 02/20/18 20:00 Room Air 02/20/18 16:00 97.6 88 16 119/69 (86) 100 02/20/18 15:52 79 Result Diagram: 02/19/18 0630 02/21/18 0430 Other Results Laboratory Tests Test 02/20/18 06:53 02/21/18 04:30 Prothrombin Time 27.7 SEC 22.0 SEC Prothromb Time International Ratio 2.7 RATIO 2.2 RATIO Blood Urea Nitrogen 61 MG/DL 62 MG/DL Creatinine 1.95 MG/DL 2.08 MG/DL Random Glucose 62 MG/DL 79 MG/DL Total Protein 6.1 GM/DL 6.7 GM/DL Albumin 3.1 GM/DL 3.2 GM/DL Calcium Level 8.8 MG/DL 8.9 MG/DL Alkaline Phosphatase 79 U/L 89 U/L Aspartate Amino Transf (AST/SGOT) 132 U/L 114 U/L Alanine Aminotransferase (ALT/SGPT) 146 U/L 148 U/L Total Bilirubin 2.3 MG/DL 2.0 MG/DL Direct Bilirubin 0.7 MG/DL 0.5 MG/DL Sodium Level 142 MEQ/L 138 MEQ/L Potassium Level 4.3 MEQ/L 4.2 MEQ/L Chloride Level 109 MEQ/L 106 MEQ/L Carbon Dioxide Level 21.1 MEQ/L 19.7 MEQ/L Anion Gap 12 MEQ/L 12 MEQ/L Estimat Glomerular Filtration Rate 33 ML/MIN 30 ML/MIN Indirect Bilirubin 1.6 MG/DL 1.5 MG/DL Imaging Last Impressions Chest X-Ray 02/18/18 1752 Signed Impressions: Service Date/Time: Sunday, February 18, 2018 18:03 - CONCLUSION: Compensated cardiomegaly with mild hyperinflation otherwise negative . Mike Armendariz MD FACR Head CT 02/18/18 0000 Signed Impressions: Service Date/Time: Sunday, February 18, 2018 19:38 - CONCLUSION: Left occipital region Mike Armendariz MD FACR Chest CT 02/18/18 0000 Signed Impressions: Service Date/Time: Sunday, February 18, 2018 22:15 - CONCLUSION: 1. Atelectasis at left lung base and minimal groundglass opacity bilaterally suggesting atelectasis versus minimal pulmonary edema. 2. Moderate diffuse cardiomegaly. 3. Coronary artery calcification. 4. Small right greater than left pleural effusions. Luciano Alford MD Abdomen/Pelvis CT 02/18/18 0000 Signed Impressions: Service Date/Time: Sunday, February 18, 2018 19:43 - CONCLUSION: Small right pleural effusion Cannot exclude bony metastatic disease in T10. Correlation suggested. No other abnormality is appreciated. Mike Armendariz MD FACR Objective Remarks General: NAD, awake, alert Chest: Equal air entry bilaterally Cardiac: Irregular Abd: +BS, soft ND Ext: No edema A/P Problem List: (1) Shortness of breath on exertion ICD Codes: R06.02 - Shortness of breath Status: Acute Plan: Acute on CKD, stage 3 Cardiorenal syndrome Acute systolic CHF Right pleural effusion related to CHF - Patient is an 87 y/o male with A. fib, CKD stage 3, hypothyroidism, and hx of CVA who presented to the ED on 02/18/18 with complaints of SOB with exertion - Review of previous outpt labs revealed: - LABS: 12/16/17 BUN 23, Cr 1.45, GRF 43, ast 24, alt 16, alk phos 69, t. bili .7, tsh 6, hgba1c 5.7, IGE 407 - LABS: 02/16/18 BUN 52, Cr 2.1, GFR 27 - Labs ar admission with BUN 66, Cr. 2.49, GFR 25 - 2D Echo (02/19/18): - LVF severely reduced with an EF in the range of 20-25%. - There is global left ventricular dysfunction. There is a flattened septum in systole and diastole consistent with right ventricle pressure and volume overload. - The right ventricular systolic function is moderately decreased. - Moderate MVR, [id number] AVR, Mod TVR - Pt is on gentle IV diuresis with Lasix 20mg IV BID - Repeat labs (02/21) --> BUN 62, Cr 2.08, GFR 30 - Appreciate input from pts flour mixer, Dr. Anna. - Monitor bmp closely - PT - Overall poor prognosis. - Pt is DNR - We will try to meet with the pts family tomorrow to discuss the case. Elevated LFTs, like related to CHF and hepatic congestion - CT Abd/pelvis (02/18) --> Small right pleural effusion Cannot exclude bony metastatic disease in T10. Correlation suggested. No other abnormality is appreciated. - Labs are slowly improving Coumadin toxicity s/p vit k - Pts INR at admission was 9.6 - Repeat INR on 02/21 is 2.2 - Coumadin has been on hold - Repeat INR in AM Cardiac enzyme elevation - Could be related to CHF/PHI Chronic A.fib, controlled - Cont. Metoprolol 100mg po daily - Monitor BP - Telemetry Hx prostate/bladder ca T10 sclerosis - Unable to exclude metastatic dz (2) Acute renal failure superimposed on stage 3 chronic kidney disease ICD Codes: N17.9 - Acute kidney failure, unspecified; N18.3 - Chronic kidney disease, stage 3 (moderate) Status: Acute (3) Pleural effusion ICD Codes: J90 - Pleural effusion, not elsewhere classified Status: Acute (4) Cardiac enzymes elevated ICD Codes: R74.8 - Abnormal levels of other serum enzymes Status: Acute (5) LFT elevation ICD Codes: R79.89 - Other specified abnormal findings of blood chemistry Status: Acute (6) Coumadin toxicity ICD Codes: T45.511A - Poisoning by anticoagulants, accidental (unintentional), initial encounter Status: Acute (7) Hypothyroid ICD Codes: E03.9 - Hypothyroidism, unspecified Status: Chronic (8) Afib ICD Codes: I48.91 - Unspecified atrial fibrillation Status: Chronic (9) CVA (cerebral vascular accident) ICD Codes: I63.9 - Cerebral infarction, unspecified Status: Chronic Assessment and Plan Patient examined. Assessment and plan formulated with Denia Stanton PA-C. I agree with the above. Denia Stanton Feb 21, 2018 15:22 Cole Linares DO Feb 25, 2018 22:58
--- NOTE | 2018-02-21 16:55 | HHI.NPPN ---
Subjective History of Present Illness 87-year-old male with history of chronic kidney disease and CHF Review of Systems General Constitutional: Fatigue Objective Data Data Vital Signs Date Time Temp Pulse Resp B/P (MAP) Pulse Ox O2 Delivery O2 Flow Rate FiO2 02/21/18 16:11 97.4 77 20 116/66 (83) 97 02/21/18 12:12 97.3 89 18 130/70 (90) 98 02/21/18 12:00 80 02/21/18 11:27 21 02/21/18 10:38 90 Room Air 02/21/18 08:05 97.1 68 18 112/71 (85) 90 02/21/18 08:00 67 02/21/18 04:02 Room Air 02/21/18 04:02 79 02/21/18 04:00 98.2 79 18 113/57 (75) 93 02/21/18 00:00 Room Air 02/21/18 00:00 97.1 70 16 122/65 (84) 90 02/21/18 00:00 80 02/20/18 20:34 21 02/20/18 20:00 79 02/20/18 20:00 96.1 72 16 115/62 (79) 90 02/20/18 20:00 Room Air -: 02/19/18 0630 02/21/18 0430 Physical Exam General Appearance: Well Developed, Well Nourished Neck Neck Exam: Neck Supple Pulmonary Resp Exam: Clear Bilaterally, Breath Sounds Equal Cardiology CV Exam: Arrhythmia Gastrointestinal/Abdomen GI Exam: Soft, Bowel Sounds Present Extremeties Extremities Exam: No Edema Neurologic Neuro Exam: Alert Assessment/Plan Problem List: (1) Acute renal failure superimposed on stage 3 chronic kidney disease ICD Codes: N17.9 - Acute kidney failure, unspecified; N18.3 - Chronic kidney disease, stage 3 (moderate) Status: Acute Plan: This is likely due to cardiorenal syndrome and congestive heart failure Creatinine did decline Patient on Lasix 20 mg IV every 12 cut back to once a day as Cr higher 2.08 Follow BMP Overall better (2) LFT elevation ICD Codes: R79.89 - Other specified abnormal findings of blood chemistry Status: Acute Plan: Likely due to passive congestion (3) Coumadin toxicity ICD Codes: T45.511A - Poisoning by anticoagulants, accidental (unintentional), initial encounter Status: Acute Plan: Patient received vitamin K (4) Acute exacerbation of CHF (congestive heart failure) ICD Codes: I50.9 - Heart failure, unspecified Status: Acute Plan: Lasix oral ordered (5) Afib ICD Codes: I48.91 - Unspecified atrial fibrillation Status: Chronic Plan: On metoprolol Problem Qualifiers (1) Acute exacerbation of CHF (congestive heart failure): Qualified Codes: I50.9 - Heart failure, unspecified Kristen Anna MD Feb 21, 2018 16:54
[2018-02-21] MEDS: GABAPENTIN 300 MG CAP PO SCH (19:56)
[2018-02-22] VITALS (9 sets, daily range): BP systolic 116–133; BP diastolic 59–71; PULSE 69–106; RESP 16–18; TEMP 97–97.2; O2SAT 97–99
[2018-02-22] MEDS: LEVOTHYROXINE SODIUM 50 MCG TAB PO SCH (05:14)
[2018-02-22 05:33] LABS: AUTOMATED NEUTROPHIL # 4.2 TH/MM3 (1.8-7.7); BASOPHIL % 0.7 % (0.0-2.0); EOSINOPHIL # 0.1 TH/MM3 (0-0.4); EOSINOPHIL % 2.2 % (0.0-4.0); HEMATOCRIT 41.9 % (39.0-51.0); HEMOGLOBIN 14.1 GM/DL (13.0-17.0); LYMPH % 11.2 % (9.0-44.0); LYMPHOCYTE # 0.6 TH/MM3 (1.0-4.8); MEAN CELL VOLUME 99.7 FL (80.0-100.0); MEAN CORPUSCULAR HEMOGLOBIN 33.6 PG (27.0-34.0); MEAN CORPUSCULAR HGB CONC 33.7 % (32.0-36.0); MEAN PLATELET VOLUME 7.8 FL (7.0-11.0); MONOCYTE # 0.6 TH/MM3 (0-0.9); NEUT % 74.9 % (16.0-70.0); PLATELET COUNT 203 TH/MM3 (150-450); RED CELL DISTRIBUTION WIDTH 15.9 % (11.6-17.2); WHITE BLOOD COUNT 5.6 TH/MM3 (4.0-11.0)
[2018-02-22 05:36] LABS: INTERNATIONAL NORMALIZED RATIO 1.7 RATIO; PROTHROMBIN TIME - PATIENT 16.8 SEC (9.8-11.6)
[2018-02-22 05:51] LABS: ALBUMIN 3.2 GM/DL (3.4-5.0); ALT (GPT) 124 U/L (12-78); AST (GOT) 84 U/L (15-37); BICARBONATE 24.4 MEQ/L (21.0-32.0); BLOOD UREA NITROGEN 57 MG/DL (7-18); CALCIUM 8.5 MG/DL (8.5-10.1); CHLORIDE 104 MEQ/L (98-107); CREATININE 1.93 MG/DL (0.60-1.30); GLOMERULAR FILTRATION RATE 33 ML/MIN (>89); GLUCOSE,RANDOM 90 MG/DL (74-106); SODIUM (NA) 140 MEQ/L (136-145)
[2018-02-22 05:54] LABS: ALKALINE PHOSPHATASE 86 U/L (45-117); TOTAL BILIRUBIN ADULT 1.8 MG/DL (0.2-1.0); TOTAL PROTEIN 6.5 GM/DL (6.4-8.2)
[2018-02-22] MEDS ORDERED: FUROSEMIDE 20 MG/2 ML VIAL IV PUSH SCH (09:00)
[2018-02-22] MEDS: METOPROLOL TARTRATE 100 MG TAB PO SCH (10:34)
[2018-02-22] MEDS: FAMOTIDINE 20 MG TAB PO SCH (10:34)
--- NOTE | 2018-02-22 14:50 | HHI.NPPN ---
Subjective History of Present Illness 87-year-old male with history of chronic kidney disease and CHF Review of Systems General Constitutional: Fatigue Objective Data Data Vital Signs Date Time Temp Pulse Resp B/P (MAP) Pulse Ox O2 Delivery O2 Flow Rate FiO2 02/22/18 12:10 97.2 84 18 116/59 (78) 99 02/22/18 08:10 97.1 106 18 133/60 (84) 97 02/22/18 08:00 69 02/22/18 04:30 97.2 69 16 126/66 (86) 98 02/22/18 04:00 80 02/22/18 00:00 Room Air 02/22/18 00:00 79 02/21/18 23:05 97.3 92 16 119/66 (83) 97 02/21/18 21:35 21 02/21/18 21:20 97.4 92 16 108/75 (86) 96 02/21/18 20:00 Room Air 02/21/18 16:11 97.4 77 20 116/66 (83) 97 02/21/18 16:00 73 -: 02/22/18 0440 02/22/18 0440 Physical Exam General Appearance: Well Developed, Well Nourished Neck Neck Exam: Neck Supple Pulmonary Resp Exam: Clear Bilaterally, Breath Sounds Equal Cardiology CV Exam: Arrhythmia Gastrointestinal/Abdomen GI Exam: Soft, Bowel Sounds Present Extremeties Extremities Exam: No Edema Neurologic Neuro Exam: Alert Assessment/Plan Problem List: (1) Acute renal failure superimposed on stage 3 chronic kidney disease ICD Codes: N17.9 - Acute kidney failure, unspecified; N18.3 - Chronic kidney disease, stage 3 (moderate) Status: Acute Plan: This is likely due to cardiorenal syndrome and congestive heart failure Creatinine did decline Patient on Lasix 20 mg IV once a day as Cr 1.9 Plan pt can be followed as an outpatient Overall better (2) LFT elevation ICD Codes: R79.89 - Other specified abnormal findings of blood chemistry Status: Acute Plan: Likely due to passive congestion (3) Coumadin toxicity ICD Codes: T45.511A - Poisoning by anticoagulants, accidental (unintentional), initial encounter Status: Acute Plan: Patient received vitamin K (4) Acute exacerbation of CHF (congestive heart failure) ICD Codes: I50.9 - Heart failure, unspecified Status: Acute Plan: Lasix oral ordered (5) Afib ICD Codes: I48.91 - Unspecified atrial fibrillation Status: Chronic Plan: On metoprolol Problem Qualifiers (1) Acute exacerbation of CHF (congestive heart failure): Qualified Codes: I50.9 - Heart failure, unspecified Kristen Anna MD Feb 22, 2018 14:50
[2018-02-22] MEDS ORDERED: XARE20TA PO (15:30)
[2018-02-22] MEDS ORDERED: FURO1TAB62 PO (15:30)
[2018-02-22] MEDS ORDERED: POTA10CA PO (15:31)
--- NOTE | 2018-02-22 15:35 | HHI.FF ---
Face to Face Verification Diagnosis: (1) Acute exacerbation of CHF (congestive heart failure) (2) Coumadin toxicity (3) Afib (4) Hypothyroid Physical Therapy Order: Evaluate and Treat, Improve ambulation, Strength and gait training Home Health Nursing Order: Medical education Signs/symptoms of disease process CHF education Medication education-adverse effect Nursing assessment with vital signs Instructions: - Please review medications - Pt had medication changes at the hospital - Pt's coumadin was stopped - pt was started on xarelto - obtain BMP, Mag, CBC on 02/25/18 and send results to pt's PCP, Dr. Ayleen Pack. I have seen patient Corey Hoskins on 02/22/18. My clinical findings support the need for the requested home health care services because: Ltd mobility - disease progression Patient has SOB Deconditioned w/ increased weakness Med compliance is questionable Limited ability to care for self Need for psychosocial assistance I certify that my clinical findings support that this patient is homebound because: Impaired cognitive ability/safety Unsafe to leave home unassisted Need for psychosocial assistance Unable to use public transportation Poor cardiac reserve Cole Linares DO Feb 22, 2018 15:35
--- NOTE | 2018-02-22 15:47 | HHI.DS ---
Discharge Summary Admission Date Feb 18, 2018 at 20:49 Discharge Date: Feb 22, 2018 Admitting Diagnosis SOB with excertion, CHF exacerbation, positive troponin, coagulopath (1) Shortness of breath on exertion Diagnosis: Principal ICD Codes: R06.02 - Shortness of breath Status: Acute (2) Acute renal failure superimposed on stage 3 chronic kidney disease Diagnosis: Secondary ICD Codes: N17.9 - Acute kidney failure, unspecified; N18.3 - Chronic kidney disease, stage 3 (moderate) Status: Acute (3) Pleural effusion Diagnosis: Secondary ICD Codes: J90 - Pleural effusion, not elsewhere classified Status: Acute (4) LFT elevation Diagnosis: Secondary ICD Codes: R79.89 - Other specified abnormal findings of blood chemistry Status: Acute (5) Coumadin toxicity Diagnosis: Secondary ICD Codes: T45.511A - Poisoning by anticoagulants, accidental (unintentional), initial encounter Status: Acute (6) Hypothyroid Diagnosis: Secondary ICD Codes: E03.9 - Hypothyroidism, unspecified Status: Chronic (7) Afib Diagnosis: Secondary ICD Codes: I48.91 - Unspecified atrial fibrillation Status: Chronic (8) CVA (cerebral vascular accident) Diagnosis: Secondary ICD Codes: I63.9 - Cerebral infarction, unspecified Status: Chronic Consultants Dr. Kristen Anna, Nehrology Brief History Pt is 87 yo with afib, hx prostate/bladder ca, ckd 3 who presents with sob and cough since 2016. says he has seen intermodal dispatcher, ent, pulmonary, and pcp. She says asthma was considered but inhalers aren't helping. Over past 2 weeks getting more sob and very difficult to walk to mailbox. Denies orthopnea or any peripheral swelling. No abdomen swelling, No cp or palpitations. No n/v/d/f/c. They decided to come to ED for evaluation as the sob is progressive especially with exertion. LABS: 12/16/17....bun 23, cr 1.45, gfr 43, ast 24, alt 16, alk phos 69, t. bili .7 , tsh 6, hgba1c 5.7, IGE 407 LABS: 02/16/18 ...bun 52, cr 2.1, gfr 27 CBC/BMP: 02/22/18 0440 02/22/18 0440 Significant Findings Laboratory Tests Test 02/20/18 06:53 02/21/18 04:30 02/22/18 04:40 Prothrombin Time 27.7 SEC (9.8-11.6) 22.0 SEC (9.8-11.6) 16.8 SEC (9.8-11.6) Blood Urea Nitrogen 61 MG/DL (7-18) 62 MG/DL (7-18) 57 MG/DL (7-18) Creatinine 1.95 MG/DL (0.60-1.30) 2.08 MG/DL (0.60-1.30) 1.93 MG/DL (0.60-1.30) Random Glucose 62 MG/DL (74-106) Total Protein 6.1 GM/DL (6.4-8.2) Albumin 3.1 GM/DL (3.4-5.0) 3.2 GM/DL (3.4-5.0) 3.2 GM/DL (3.4-5.0) Aspartate Amino Transf (AST/SGOT) 132 U/L (15-37) 114 U/L (15-37) 84 U/L (15-37) Alanine Aminotransferase (ALT/SGPT) 146 U/L (12-78) 148 U/L (12-78) 124 U/L (12-78) Total Bilirubin 2.3 MG/DL (0.2-1.0) 2.0 MG/DL (0.2-1.0) 1.8 MG/DL (0.2-1.0) Direct Bilirubin 0.7 MG/DL (0.0-0.2) 0.5 MG/DL (0.0-0.2) Chloride Level 109 MEQ/L (98-107) Estimat Glomerular Filtration Rate 33 ML/MIN (>89) 30 ML/MIN (>89) 33 ML/MIN (>89) Indirect Bilirubin 1.6 MG/DL (0.0-0.8) 1.5 MG/DL (0.0-0.8) Carbon Dioxide Level 19.7 MEQ/L (21.0-32.0) Red Blood Count 4.20 MIL/MM3 (4.50-5.90) Neutrophils (%) (Auto) 74.9 % (16.0-70.0) Monocytes (%) (Auto) 11.0 % (0.0-8.0) Lymphocytes # (Auto) 0.6 TH/MM3 (1.0-4.8) PE at Discharge General: NAD, awake, alert Chest: Equal air entry bilaterally Cardiac: Irregular Abd: +BS, soft ND Ext: No edema Hospital Course (1) Shortness of breath on exertion ICD Codes: R06.02 - Shortness of breath Status: Acute Plan: Acute on CKD, stage 3 Cardiorenal syndrome Acute systolic CHF Right pleural effusion related to CHF - Patient is an 87 y/o male with A. fib, CKD stage 3, hypothyroidism, and hx of CVA who presented to the ED on 02/18/18 with complaints of SOB with exertion - Review of previous outpt labs revealed: - LABS: 12/16/17 BUN 23, Cr 1.45, GRF 43, ast 24, alt 16, alk phos 69, t. bili .7, tsh 6, hgba1c 5.7, IGE 407 - LABS: 02/16/18 BUN 52, Cr 2.1, GFR 27 - Labs ar admission with BUN 66, Cr. 2.49, GFR 25 - 2D Echo (02/19/18): - LVF severely reduced with an EF in the range of 20-25%. - There is global left ventricular dysfunction. There is a flattened septum in systole and diastole consistent with right ventricle pressure and volume overload. - The right ventricular systolic function is moderately decreased. - Moderate MVR, [id number] AVR, Mod TVR - Pt is on gentle IV diuresis with Lasix 20mg IV BID - Repeat labs (02/21) --> BUN 62, Cr 2.08, GFR 30 - Appreciate input from pts facilities assistant, Dr. Anna. - Monitor bmp closely - PT - Overall poor prognosis. - Pt is DNR - Discharge to home with HHC Elevated LFTs, like related to CHF and hepatic congestion - CT Abd/pelvis (02/18) --> Small right pleural effusion Cannot exclude bony metastatic disease in T10. Correlation suggested. No other abnormality is appreciated. - Labs are slowly improving Coumadin toxicity s/p vit k - Pts INR at admission was 9.6 - Repeat INR on 02/21 is 2.2, 1.7 (02/22) - anticoagulation changed to xarelto Cardiac enzyme elevation - Could be related to CHF/PHI Chronic A.fib, controlled - Cont. Metoprolol 100mg po daily - Monitor BP - Telemetry Hx prostate/bladder ca T10 sclerosis - Unable to exclude metastatic dz Pt Condition on Discharge: Stable Discharge Disposition: Disch w/ Home Health Serv Discharge Instructions DIET: Follow Instructions for: Heart Healthy Diet Activities you can perform: Regular-No Restrictions Follow up Referrals: Cardiology - [address] Christiano Mcgee Cardiology @ DR. CHRISTIANO MCGEE PCP Follow-up - [address] Ayleen Musa PCP Follow-up @ DR. AYLEEN MUSA [facility] New Medications: Furosemide (Lasix) 20 Mg Tab 20 MG PO DAILY for chf, #30 TAB 0 Refills Potassium Chloride ER (Potassium Chloride ER) 10 Meq Cap 10 MEQ PO DAILY for Electrolyte Replacement, #30 CAP 0 Refills Rivaroxaban (Xarelto) 20 Mg Tab 20 MG PO DAILY for Blood Clot Prevention, #30 TAB 0 Refills Continued Medications: Gabapentin (Gabapentin) 300 Mg Cap 300 MG PO HS, #30 CAP 0 Refills Levothyroxine (Levothyroxine) 50 Mcg Tab 50 MCG PO DAILY for Thyroid, #30 TAB 0 Refills Metoprolol Tartrate (Metoprolol Tartrate) 100 Mg Tab 100 MG PO DAILY, #30 TAB 0 Refills Ranitidine (Ranitidine) 150 Mg Tab 150 MG PO BID for Heartburn Management, #60 TAB 0 Refills Discontinued Medications: Montelukast (Singulair) 10 Mg Tab 10 MG PO HS, #30 TAB 0 Refills Warfarin (Warfarin) 2.5 Mg Tab 2.5 MG PO DAILY for Blood Clot Prevention, #30 TAB 0 Refills Cole Linares DO Feb 22, 2018 15:47
[2018-02-22] MEDS ORDERED: RIVAROXABAN 20 MG TAB PO SCH (17:30)
== END 2018-02-22 18:13 | disposition home health service (06) | DRG 291 ==
LOC: NEPE 16:42 → NEDA 20:49 → N04B 22:25
PROVIDERS: ADMIT Hospitalist; ATTEND Hospitalist
DX: I13.0 Hypertensive heart and chronic kidney disease with heart failure and stage 1 through stage 4 chronic kidney disease, or unspecified chronic kidney disease (principal); I50.21 Acute systolic (congestive) heart failure; N17.9 Acute kidney failure, unspecified; D68.32 Hemorrhagic disorder due to extrinsic circulating anticoagulants; T45.515A Adverse effect of anticoagulants, initial encounter; N18.3 Chronic kidney disease, stage 3 (moderate); I48.91 Unspecified atrial fibrillation; F03.90 Unspecified dementia, unspecified severity, without behavioral disturbance, psychotic disturbance, mood disturbance, and anxiety; E03.9 Hypothyroidism, unspecified; Z66 Do not resuscitate; R79.89 Other specified abnormal findings of blood chemistry; Z85.51 Personal history of malignant neoplasm of bladder; Z85.46 Personal history of malignant neoplasm of prostate; Z86.73 Personal history of transient ischemic attack (TIA), and cerebral infarction without residual deficits
CPT/HCPCS: 70450; 71046; 71250; 74176; 80048; 80053; 80076; 81001; 82550; 82552; 82948; 83690; 83735; 83880; 84443; 84484; 85025; 85610; 85730; 87040; 93005; 93306; 96360; J1940; J7040

== ENCOUNTER 2018-04-06 19:07 | Emergency (ER) | payer OTHER, MEDICARE ==
[~2018-04-06] VITALS: Ht 165.1 cm; Wt 70.0 kg
[~2018-04-06 19:07] MED LIST changes: +FURO1TAB62 PO; +GABA300C5 PO; +LEVO50TA4 PO; +METO100T PO; +POTA10CA PO; +RANI150T PO; +XARE20TA PO; -ZOCO10TA
[2018-04-06 19:33] VITALS: BP 115/63; PULSE 144; RESP 22; TEMP 98.3
[2018-04-06] MEDS ORDERED: SODIUM CHLOR 0.9% 1000 ML INJ 1,000 ML IV ONE (19:52)
[2018-04-06] MEDS ORDERED: SODIUM CHLORIDE 0.9% FLUSH 10 ML FLUSH IVF PRN (20:00)
[2018-04-06] MEDS ORDERED: LIDOCAINE 1%/EPINEPHrine 1:100,000 SOLN 50 ML VIAL INFIL ONE (20:00)
[2018-04-06] MEDS ORDERED: TETANUS/DIPHTHERIA TOXOID ADULT 0.5 ML VIAL IM ONE (20:00)
[2018-04-06] MEDS ORDERED: METOPROLOL TARTRATE 5 MG/5 ML VIAL IVS SCH (20:00)
--- NOTE | 2018-04-06 20:13 | PD ---
HPI Chief Complaint: Fall Time Seen by Provider: 19:35 Travel History International Travel<30 days: No Contact w/Intl Traveler<30days: No Traveled to known affect area: No History of Present Illness HPI 87-year-old male presents from [facility] for evaluation after a fall. Prior to arrival the patient reports that he was standing up from a chair and then he fell. He does not know specifically why he fellhe denies loss of consciousness, he does not recall any dizziness or shortness of breath or nausea or vomiting or lightheadedness, vertigo, acute headache, blurred vision, abdominal pain or palpitations. He hit the back of his head against the ground. No loss of consciousness. He has laceration to the occipital scalp. He has essentially no complaints at this time. He is noted to be in atrial fibrillation with RVR. According to chart review he has a history of atrial fibrillation. 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 According to his most recent discharge summary on February 22 he was started on Xarelto which was switched from Coumadin, he is also supposed to be on metoprolol 100 mg daily for rate control. It is unclear if these medications are being administered at [facility] as it is not on their paper med rec.shortly after the patient arrived the patient's arrived and reports that recently he was transitioned to hospice and several of his medications were discontinued including his metoprolol and Xarelto. DNR. [facility] Past Medical History Atrial Fibrillation: Yes Blood Disorders: No Heart Rhythm Problems: Yes (afib) Cancer: Yes (PROSTATE/turp) Cardiovascular Problems: Yes High Cholesterol: Yes Chemotherapy: No Chest Pain: No Congestive Heart Failure: Yes Endocrine: No Gastrointestinal Disorders: Yes Genitourinary: Yes Hypertension: Yes Immune Disorder: No Musculoskeletal: No Neurologic: No Psychiatric: No Reproductive: Yes (prostrate removed /turp) Respiratory: No Radiation Therapy: No Renal Failure: Yes (kidney improving) Thyroid Disease: Yes Ulcer: Yes Influenza Vaccination: Yes Past Surgical History Abdominal Surgery: Yes (ulcers fixed in 30's) AICD: No Arteriovenous Shunt: No Insulin Pump: No Joint Replacement: No Pacemaker: No Social History Alcohol Use: Yes (1-2 BEERS DAILY) Tobacco Use: No Substance Use: No Allergies-Medications (Allergen,Severity, Reaction): Coded Allergies: Sulfa (Sulfonamide Antibiotics) (Unverified Allergy, Unknown, 06/29/17) Reported Meds & Prescriptions Reported Meds & Active Scripts Active Potassium Chloride ER (Potassium Chloride) 10 Meq Cap 10 Meq PO DAILY Lasix (Furosemide) 20 Mg Tab 20 Mg PO DAILY Reported Sennosides 8.6 Mg Tab 8.6 Mg PO HS Oxycodone (Oxycodone HCl) 10 Mg Tab 10 Mg PO Q4H PRN Oxycodone (Oxycodone HCl) 5 Mg Cap 5 Mg PO Q4H PRN Lorazepam 1 Mg Tab 1 Mg PO Q4H PRN Duoneb (Ipratropium-Albuterol Neb) 0.5-2.5 Mg/3 Ml Neb 1 Nebule INH Q4HR NEB Diphenhydramine (Diphenhydramine HCl) 25 Mg Cap 25 Mg PO Q6H PRN Bisacodyl Supp (Bisacodyl) 10 Mg Supp 10 Mg RECTAL DAILY PRN Aspirin 81 Mg Chew 81 Mg CHEW DAILY Tylenol (Acetaminophen) 325 Mg Tab 325 Mg PO Q6H PRN Levothyroxine (Levothyroxine Sodium) 50 Mcg Tab 50 Mcg PO DAILY Metoprolol Tartrate 100 Mg Tab 100 Mg PO DAILY Review of Systems Except as stated in HPI: all other systems reviewed are Neg Physical Exam Narrative GENERAL: Pleasant well-developed well-nourished male in no acute distress SKIN: Warm and dry. There is a 3 cm occipital scalp laceration HEAD: Skin as noted above normocephalic. EYES: Pupils equal and round. No scleral icterus. No injection or drainage. ENT: No nasal bleeding or discharge. Mucous membranes pink and moist. NECK: Trachea midline. No JVD. CARDIOVASCULAR: Irregular rate and rhythm. No murmur appreciated. RESPIRATORY: No accessory muscle use. Clear to auscultation. Breath sounds equal bilaterally. GASTROINTESTINAL: Abdomen soft, non-tender, nondistended. Hepatic and splenic margins not palpable. MUSCULOSKELETAL: No obvious deformities. No clubbing. No cyanosis. No edema. NEUROLOGICAL: Awake and alert. No obvious cranial nerve deficits. Motor grossly within normal limits. Normal speech. PSYCHIATRIC: Appropriate mood and affect; insight and judgment normal. Data Data Last Documented VS Vital Signs Date Time Temp Pulse Resp B/P (MAP) Pulse Ox O2 Delivery O2 Flow Rate FiO2 04/06/18 19:39 144 22 Room Air 04/06/18 19:33 98.3 115/63 (80) Orders Orders Electrocardiogram (04/06/18:52) Basic Metabolic Panel (Bmp) (04/06/18:52) Complete Blood Count With Diff (04/06/18:52) Magnesium (Mg) (04/06/18:52) Ckmb (Isoenzyme) Profile (04/06/18) Troponin I (04/06/18:52) Act Partial Throm Time (Ptt) (04/06/18:52) Prothrombin Time / Inr (Pt) (04/06/18:) Urinalysis - C+S If Indicated (04/06/18:) Chest, Single Ap (04/06/18:52) Ct Brain W/O Iv Contrast(Rout) (04/06/18:) Blood Glucose (04/06/18:) Ecg Monitoring (04/06/18:) Iv Access Insert/Monitor (04/06/18:) Oximetry (04/06/18:52) Sodium Chloride 0.9% Flush (Ns Flush) (04/06/18 20:00) Sodium Chlor 0.9% 1000 Ml Inj (Ns 1000 M (04/06/18 19:52) Tetanus/Diphtheria Tox Adult (Tetanus/Di (04/06/18 20:00) Lidocai-Epi 1%-1:100,000 Inj (Xylocaine- (04/06/18 20:00) Metoprolol Tartrate Inj (Lopressor Inj) (04/06/18 20:00) Metoprolol Tartrate (Lopressor) (04/06/18 20:30) Admit Order (Ed Use Only) (04/06/18 21:55) Labs Laboratory Tests Test 04/06/18 19:50 White Blood Count 9.9 TH/MM3 Red Blood Count 4.86 MIL/MM3 Hemoglobin 16.0 GM/DL Hematocrit 47.7 % Mean Corpuscular Volume 98.2 FL Mean Corpuscular Hemoglobin 32.8 PG Mean Corpuscular Hemoglobin Concent 33.4 % Red Cell Distribution Width 16.2 % Platelet Count 241 TH/MM3 Mean Platelet Volume 8.9 FL Neutrophils (%) (Auto) 91.5 % Lymphocytes (%) (Auto) 2.8 % Monocytes (%) (Auto) 4.7 % Eosinophils (%) (Auto) 0.5 % Basophils (%) (Auto) 0.5 % Neutrophils # (Auto) 9.0 TH/MM3 Lymphocytes # (Auto) 0.3 TH/MM3 Monocytes # (Auto) 0.5 TH/MM3 Eosinophils # (Auto) 0.1 TH/MM3 Basophils # (Auto) 0.0 TH/MM3 CBC Comment DIFF FINAL Differential Comment Prothrombin Time 12.6 SEC Prothromb Time International Ratio 1.2 RATIO Activated Partial Thromboplast Time 26.9 SEC Urine Color DARK-RED Urine Turbidity CLOUDY Urine pH 8.0 Urine Specific Edison 1.018 Urine Protein 300 mg/dL Urine Glucose (UA) NEG mg/dL Urine Ketones NEG mg/dL Urine Occult Blood LARGE Urine Nitrite NEG Urine Bilirubin NEG Urine Urobilinogen LESS THAN 2.0 MG/DL Urine Leukocyte Esterase LARGE Urine RBC /hpf Urine WBC /hpf Urine WBC Clumps MANY Microscopic Urinalysis Comment CULTURE INDICATED Blood Urea Nitrogen 39 MG/DL Creatinine 1.80 MG/DL Random Glucose 113 MG/DL Calcium Level 8.8 MG/DL Magnesium Level 2.0 MG/DL Sodium Level 135 MEQ/L Potassium Level 4.2 MEQ/L Chloride Level 96 MEQ/L Carbon Dioxide Level 26.1 MEQ/L Anion Gap 13 MEQ/L Estimat Glomerular Filtration Rate 36 ML/MIN Total Creatine Kinase 68 U/L Troponin I 0.31 NG/ML MDM Medical Decision Making Medical Screen Exam Complete: Yes Emergency Medical Condition: Yes Medical Record Reviewed: Yes Differential Diagnosis Atrial fibrillation with RVR, closed head injury, intracranial hemorrhage, scalp laceration, electrolyte abnormality, dehydration Narrative Course The patient was placed on ECG monitoring pulse oximetry. A 12 EKG was obtained revealing atrial fibrillation with RVR. Lab work, chest x-ray, CT brain ordered. Laceration will be repaired with estrellita, he verbally consents. The patient was most recently on metoprolol 100 mg daily, therefore he will be given a dose of 100 mg metoprolol orally. The patient's lab work is been reviewed. His troponin is 0.31 which is elevated from his baseline which is between 0.04 and 0.09. This is likely secondary to his RVR however this should be trended. Dr. Syed discussed with Dr. Fritz who is agreeable with admission for observation and serial cardiac enzymes. CT the brain reveals no acute abnormalities. Chest x-ray reveals no acute normalities, cardiomegaly with mild positive fluid balance. Procedures Procedure Narrative LACERATION LOCATION: Occipital scalp LENGTH: 4 cm NUMBER OF STITCHES/ESTRELLITA: 8 REPAIR: The area of the laceration was prepped with Betadine and sterilely draped. The laceration was infiltrated with 1% lidocaine with epinephrine. The wound was copiously irrigated and explored without evidence of foreign body , tendon injury or neurovascular injury. The wound was closed using estrellita. This was a single layer repair. A sterile dressing was applied. The patient was advised to keep the dressing clean and dry. Patient tolerated the procedure well. Diagnosis Primary Impression: Troponin level elevated Additional Impression: Atrial fibrillation with RVR Admitting Information Admitting Physician Requests: Observation Polo Murray April 06, 2018 20:13
--- NOTE | 2018-04-06 20:29 | PD ---
Physical Exam Narrative I, Dr. Syed, have reviewed the advance practice practitioner's documentation and am in agreement, met with the patient face to face, made the diagnosis, and the medical decision making was done by me. *My assessment and Findings: Afib RVR vs. scalp laceration vs. ICH 87yo M with PMH of prostate CA, CHF EF 20% on hospice care, afib not on any rate control medication or anticoagulation was sent here after fall today. Pt said he stood up and fell, unknown why he fell. He did hit his head and has mid scalp laceration. Pt denies any other complaints. Denies any fever, chest pain, sob, n/v, abdominal pain, focal weakness or numbness. Pt has chronic indwelling friend catheter. Pt was found to be in afib 120bpm. Pt was discharge from hospital last month on metoprolol 100mg BID and xarelto for afib but family said hospice took him off those medication but is unsure why. Pt is well appearing so will give metoprolol 100mg for rate control. Will obtain CT brain and repair laceration. Labs reviewed, no leukocytosis. H/H normal. Troponin is elevated at 0.31, which may be secondary to pt being in afib RVR for a long time since pt was taken off his metoprolol by hospice. Pt has no chest pain or sob. BUN/creatinine at baseline. CXR showed no acute abnormality or significant interval change. CT brain showed no acute intracranial abnormality. Old left occipital infarct. Laceration repaired by my PA Polo. HR is now 90s to low 100s after metoprolol 100mg PO. Pt is asymptomatic but will observe him on telemetry and trend troponin. UA pending. Discussed with Dr. Fritz and accepted to his service. I was informed by pt's nurse that pt was in asystole so went to patient's room and pt was in asystole. Pt is a DNR so CPR was not started. Time of 10: 10pm. Called pt's and informed her. Pt is under hospice care so hospice physician will do certificate. Of note, I did discuss the case with hospitalist Dr. Fritz but he has not physically evaluated the patient yet. Data Data Last Documented VS Vital Signs Date Time Temp Pulse Resp B/P (MAP) Pulse Ox O2 Delivery O2 Flow Rate FiO2 04/06/18 19:39 144 22 Room Air 04/06/18 19:33 98.3 115/63 (80) Orders Orders Electrocardiogram (04/06/18:52) Basic Metabolic Panel (Bmp) (04/06/18:52) Complete Blood Count With Diff (04/06/18:52) Magnesium (Mg) (04/06/18:52) Ckmb (Isoenzyme) Profile (04/06/18:52) Troponin I (04/06/18) Act Partial Throm Time (Ptt) (04/06/18:) Prothrombin Time / Inr (Pt) (04/06/18:) Urinalysis - C+S If Indicated (04/06/18) Chest, Single Ap (04/06/18:52) Ct Brain W/O Iv Contrast(Rout) (04/06/18:52) Blood Glucose (04/06/18:) Ecg Monitoring (04/06/18:) Iv Access Insert/Monitor (04/06/18:) Oximetry (04/06/18:52) Sodium Chloride 0.9% Flush (Ns Flush) (04/06/18 20:00) Sodium Chlor 0.9% 1000 Ml Inj (Ns 1000 M (04/06/18 19:52) Tetanus/Diphtheria Tox Adult (Tetanus/Di (04/06/18 20:00) Lidocai-Epi 1%-1:100,000 Inj (Xylocaine- (04/06/18 20:00) Metoprolol Tartrate Inj (Lopressor Inj) (04/06/18 20:00) Metoprolol Tartrate (Lopressor) (04/06/18 20:30) Admit Order (Ed Use Only) (04/06/18 21:55) Labs Laboratory Tests Test 04/06/18 19:50 White Blood Count 9.9 TH/MM3 Red Blood Count 4.86 MIL/MM3 Hemoglobin 16.0 GM/DL Hematocrit 47.7 % Mean Corpuscular Volume 98.2 FL Mean Corpuscular Hemoglobin 32.8 PG Mean Corpuscular Hemoglobin Concent 33.4 % Red Cell Distribution Width 16.2 % Platelet Count 241 TH/MM3 Mean Platelet Volume 8.9 FL Neutrophils (%) (Auto) 91.5 % Lymphocytes (%) (Auto) 2.8 % Monocytes (%) (Auto) 4.7 % Eosinophils (%) (Auto) 0.5 % Basophils (%) (Auto) 0.5 % Neutrophils # (Auto) 9.0 TH/MM3 Lymphocytes # (Auto) 0.3 TH/MM3 Monocytes # (Auto) 0.5 TH/MM3 Eosinophils # (Auto) 0.1 TH/MM3 Basophils # (Auto) 0.0 TH/MM3 CBC Comment DIFF FINAL Differential Comment Prothrombin Time 12.6 SEC Prothromb Time International Ratio 1.2 RATIO Activated Partial Thromboplast Time 26.9 SEC Urine Color DARK-RED Urine Turbidity CLOUDY Urine pH 8.0 Urine Specific Cecilia 1.018 Urine Protein 300 mg/dL Urine Glucose (UA) NEG mg/dL Urine Ketones NEG mg/dL Urine Occult Blood LARGE Urine Nitrite NEG Urine Bilirubin NEG Urine Urobilinogen LESS THAN 2.0 MG/DL Urine Leukocyte Esterase LARGE Urine RBC /hpf Urine WBC /hpf Urine WBC Clumps MANY Microscopic Urinalysis Comment CULTURE INDICATED Blood Urea Nitrogen 39 MG/DL Creatinine 1.80 MG/DL Random Glucose 113 MG/DL Calcium Level 8.8 MG/DL Magnesium Level 2.0 MG/DL Sodium Level 135 MEQ/L Potassium Level 4.2 MEQ/L Chloride Level 96 MEQ/L Carbon Dioxide Level 26.1 MEQ/L Anion Gap 13 MEQ/L Estimat Glomerular Filtration Rate 36 ML/MIN Total Creatine Kinase 68 U/L Troponin I 0.31 NG/ML MDM Supervised Visit with CRISTOPHER: Yes Interpretation(s) EKG: Afib 120bpm. LAD. No significant ST elevation or depression. Diagnosis Primary Impression: Cardiac arrest Disposition: 20 Condition: Susana Syed DO April 06, 2018 20:29
[2018-04-06] MEDS ORDERED: METOPROLOL TARTRATE 100 MG TAB PO ONE (20:30)
[2018-04-06 20:33] LABS: INTERNATIONAL NORMALIZED RATIO 1.2 RATIO; PROTHROMBIN TIME - PATIENT 12.6 SEC (9.8-11.6)
[2018-04-06 20:36] LABS: BICARBONATE 26.1 MEQ/L (21.0-32.0); CALCIUM 8.8 MG/DL (8.5-10.1); CREATININE 1.8 MG/DL (0.60-1.30)
[2018-04-06 20:38] LABS: BASOPHIL % 0.5 % (0.0-2.0); EOSINOPHIL # 0.1 TH/MM3 (0-0.4); EOSINOPHIL % 0.5 % (0.0-4.0); HEMATOCRIT 47.7 % (39.0-51.0); LYMPH % 2.8 % (9.0-44.0); LYMPHOCYTE # 0.3 TH/MM3 (1.0-4.8); MEAN CELL VOLUME 98.2 FL (80.0-100.0); MEAN CORPUSCULAR HEMOGLOBIN 32.8 PG (27.0-34.0); MEAN CORPUSCULAR HGB CONC 33.4 % (32.0-36.0); MEAN PLATELET VOLUME 8.9 FL (7.0-11.0); MONO % 4.7 % (0.0-8.0); MONOCYTE # 0.5 TH/MM3 (0-0.9); NEUT % 91.5 % (16.0-70.0); PLATELET COUNT 241 TH/MM3 (150-450); RED BLOOD COUNT 4.86 MIL/MM3 (4.50-5.90); RED CELL DISTRIBUTION WIDTH 16.2 % (11.6-17.2); WHITE BLOOD COUNT 9.9 TH/MM3 (4.0-11.0)
[2018-04-06 20:39] LABS: TROPONIN I 0.31 NG/ML (0.02-0.05)
--- NOTE | 2018-04-06 20:49 | RADRPT ---
EXAM DATE: 04/06/2018 8:30 PM EDT AGE/SEX: 87 years / Male INDICATIONS: Fall, Dizziness CLINICAL DATA: This is the patient's initial encounter. Patient reports that signs and symptoms have been present for 1 day and indicates a pain score of 0/10. MEDICAL/SURGICAL HISTORY: Cardiovascular disease. Congestive heart failure. Hypertension. Renal failure None. RADIATION DOSE: 56.35 CTDI (mGy) [place] [facility] [place]. . TECHNIQUE: CT of the head without contrast. Using automated exposure control and adjustment of the mA and/or kV according to patient size, radiation dose was kept as low as reasonably achievable to ob tain optimal diagnostic quality images. FINDINGS: Cerebrum: Redemonstration of encephalomalacia in the left occipital lobe with associated ex vacuo di latation of the left lateral ventricle posterior horn. Prominent periventricular white matter hypoden sities. Moderate diffuse cerebral atrophy. The ventricles are normal for degree of atrophy. No eviden ce of midline shift, mass lesion, hemorrhage or acute infarction. No extraaxial fluid collections ar e seen. Posterior Fossa: The cerebellum and brainstem are intact. The 4th ventricle is midline. The cerebe llopontine angle is unremarkable. Extracranial: The visualized portion of the orbits is intact. Skull: The calvaria is intact. No evidence of skull fracture. CONCLUSION: 1. No acute intracranial abnormality. 2. Old left occipital infarct. 3. Senescent changes with prominent periventricular ischemic white matter demyelination. Electronically signed by: Christopher Rangel MD 04/06/2018 8:48 PM EDT
[2018-04-06] MEDS ORDERED: TYLE325T PO (21:07)
[2018-04-06] MEDS ORDERED: OXYC1CAP PO (21:07)
[2018-04-06] MEDS ORDERED: DIPH25CA PO (21:07)
[2018-04-06] MEDS ORDERED: IPRASOL INH (21:07)
[2018-04-06] MEDS ORDERED: BISA10SU3 RECTAL (21:07)
[2018-04-06] MEDS ORDERED: ASPI-516 CHEW (21:07)
[2018-04-06] MEDS ORDERED: LORA1TAB12 PO (21:07)
[2018-04-06] MEDS ORDERED: OXYC-395 PO (21:07)
[2018-04-06] MEDS ORDERED: SENN8.6T81 PO (21:07)
--- NOTE | 2018-04-06 21:21 | RADRPT ---
EXAM DATE: 04/06/2018 9:16 PM EDT AGE/SEX: 87 years / Male INDICATIONS: Evaluate lung status. Patient fell tonight. CLINICAL DATA: This is the patient's initial encounter. Patient reports that signs and symptoms have been present for 1 day and indicates a pain score of 0/10. MEDICAL/SURGICAL HISTORY: Hypertension. Hypercholesterolemia. Congestive heart failure. Atri al fibrillation. Renal failure. Prostate cancer. Prostatectomy. [place] [facility] [place]. . FINDINGS: Mild diffuse interstitial prominence. No new focal pleural or parenchymal opacities. No significant p neumothorax. Cardiac silhouette remains enlarged. Bony thorax is grossly intact. CONCLUSION: 1. No acute abnormality or significant interval change. 2. Cardiomegaly with mild positive fluid balance. Electronically signed by: Christopher Rangel MD 04/06/2018 9:20 PM EDT
[2018-04-06] MEDS ORDERED: ACETAMINOPHEN 325 MG TAB PO PRN (22:00)
[2018-04-06] MEDS ORDERED: BISACODYL 10 MG SUPP RECTAL PRN (22:00)
[2018-04-06] MEDS ORDERED: MAGNESIUM HYDROXIDE SUSP 30 ML CUP PO PRN (22:00)
[2018-04-06] MEDS ORDERED: SENNOSIDES 8.6 MG TAB PO PRN (22:00)
[2018-04-06] MEDS ORDERED: LACTULOSE SYRUP 20 GM/30 ML CUP PO PRN (22:00)
[2018-04-06] MEDS ORDERED: SODIUM CHLORIDE 0.9% FLUSH 10 ML FLUSH IV FLUSH PRN (22:00)
[2018-04-06] MEDS ORDERED: ONDANSETRON HCL 4 MG/2 ML VIAL IVP PRN (22:00)
[2018-04-06] MEDS ORDERED: NALOXONE HCL 0.4 MG/ML AMP IV PUSH PRN (22:00)
[2018-04-06 22:06] LABS: BILIRUBIN, URINE NEG (NEG); BLOOD, URINE LARGE (NEG); GLUCOSE,URINE NEG (NEG); KETONE, URINE NEG (NEG); NITRITE,URINE NEG (NEG); URINE LEUKOCYTE ESTERASE LARGE (NEG); WHITE BLOOD CELL CLUMPS MANY
[2018-04-06 22:07] LABS: URINE COLOR DARK-RED (YELLW/STRAW)
[2018-04-07] MEDS ORDERED: SODIUM CHLORIDE 0.9% FLUSH 10 ML FLUSH IV FLUSH SCH (09:00)
--- NOTE | 2018-04-08 08:17 | EKG ---
Date Performed: 04/06/2018 Time Performed: 19:41:41 PTAGE: 87 years EKG: ATRIAL FIBRILLATION WITH RAPID VENTRICULAR RESPONSE WITH ABERRANT CONDUCTION OR VENTRICULAR PREMATURE COMPLEXES NONSPECIFIC ST & T-WAVE ABNORMALITY ABNORMAL ECG PREVIOUS TRACING : 02/18/2018 17.24 DOCTOR: Marilee Marin Interpretating Date/Time 04/08/2018 08:13:58
== END 2018-04-06 22:10 | disposition expired ==
LOC: NEPC 19:07 → NEDA 21:56 → UNDOADMOB 21:56 → NEPC 22:10 → UNDODISOB 22:10
DX: I46.9 Cardiac arrest, cause unspecified (principal); R79.89 Other specified abnormal findings of blood chemistry; I48.0 Paroxysmal atrial fibrillation; S01.01XA Laceration without foreign body of scalp, initial encounter; B96.89 Other specified bacterial agents as the cause of diseases classified elsewhere; I13.0 Hypertensive heart and chronic kidney disease with heart failure and stage 1 through stage 4 chronic kidney disease, or unspecified chronic kidney disease; I50.9 Heart failure, unspecified; N18.9 Chronic kidney disease, unspecified; W07.XXXA Fall from chair, initial encounter; Y92.129 Unspecified place in nursing home as the place of occurrence of the external cause; Z23 Encounter for immunization; Z86.73 Personal history of transient ischemic attack (TIA), and cerebral infarction without residual deficits; Z85.46 Personal history of malignant neoplasm of prostate; Z88.2 Allergy status to sulfonamides; Z79.899 Other long term (current) drug therapy
CPT/HCPCS: 12002; 70450; 71045; 80048; 81001; 82550; 83735; 84484; 85025; 85610; 85730; 87086; 90471; 90714; 93005